=== PATIENT | female | born 1960 | race Caucasian/White ===

== ENCOUNTER → 2017-04-25 | Outpatient (CLI) | payer BC ==
[~2017-04-25] MED LIST: ADVIN25/60 INH; CLON1TAB3 PO; OXYSR10 PO; RXC5 PO; SERT50TA PO
[2017-04-25 11:35] LABS: BLOOD UREA NITROGEN 12 mg/dl (7-18); CARBON DIOXIDE 27 mmol/L (21-32); CHOLESTEROL 225 mg/dl (0-200); CREATININE 0.65 mg/dl (0.60-1.20); GLUCOSE 94 mg/dl (70-99); SODIUM 140 mmol/L (136-145)
[2017-04-25 11:39] LABS: LDL CHOLESTEROL CALCULATED 141 mg/dl
== END | disposition home or self-care (01) ==
LOC: C.LABBC 07:57
PROVIDERS: ATTEND Family Medicine
DX: Z12.11 Encounter for screening for malignant neoplasm of colon (principal); Z13.1 Encounter for screening for diabetes mellitus

== ENCOUNTER → 2017-06-18 | Outpatient (CLI) | payer BC ==
--- NOTE | 2017-06-24 07:29 | MAMMOGRAPHY REPORT ---
BILATERAL DIGITAL SCREENING MAMMOGRAM TOMOSYNTHESIS WITH CAD: 06/18/2017 CLINICAL HISTORY: Routine screening. Patient has no complaints. TECHNIQUE: Breast tomosynthesis in addition to standard 2D mammography was performed. Current study was also evaluated with a Computer Aided Detection (CAD) system. COMPARISON: Comparison is made to exams dated: 02/19/2012 mammogram and 02/08/2012 mammogram - [facility]. BREAST COMPOSITION: There are scattered areas of fibroglandular density in both breasts. FINDINGS: The parenchymal pattern is unchanged. No developing mass, architectural distortion or clus ter of suspicious microcalcifications is seen in either breast. IMPRESSION: ACR BI-RADS CATEGORY 2: BENIGN There is no mammographic evidence of malignancy. A 1 year screening mammogram is recommended. The pa tient will receive written notification of the results. Approximately 10% of breast cancers are not detected with mammography. A negative mammographic report should not delay biopsy if a clinically suggestive mass is present. Elyssa Escobedo M.D. ay/:06/18/2017 16:11:49 Sheet Metal Technician: Alayna Velez RT(R)(M), [facility] letter sent: Normal 1/2 BI-RADS Code: ACR BI-RADS Category 2: Benign
== END | disposition home or self-care (01) ==
LOC: C.MAMM 13:35
PROVIDERS: ATTEND Family Medicine
DX: Z12.31 Encounter for screening mammogram for malignant neoplasm of breast (principal)

== ENCOUNTER → 2017-07-12 | Outpatient (CLI) | payer BC | END | disposition home or self-care (01) | LOC: C.LAB1850 09:36 | PROVIDERS: ATTEND Family Medicine | DX: Z11.59 Encounter for screening for other viral diseases (principal) ==

== ENCOUNTER 2017-10-25 12:41 | Emergency (ER) | payer BC ==
[~2017-10-25] VITALS: Ht 157.5 cm; Wt 83.0 kg
[~2017-10-25 12:41] MED LIST changes: +CLON1TAB10 PO; -CLON1TAB3 PO
[2017-10-25 12:55] VITALS: TEMP 36.7; Ht 157.5 cm; Wt 83.0 kg
[2017-10-25] MEDS ORDERED: SODIUM CHLORIDE 0.9% 500ML 500 ML IV STA (13:11)
[2017-10-25] MEDS ORDERED: DiphenhydrAMINE HCL 50 MG/ML VIAL IV STA ×2 (13:11→15:08)
[2017-10-25] MEDS ORDERED: KETOROLAC TROMETHAMINE 30 MG/ML VIAL IV STA (13:11)
[2017-10-25] MEDS ORDERED: CEFTRIAXONE SOD INJ 1 GM in DEXTROSE 5% ADD-VANTAGE 50ML 50 ML IV STA (13:11)
--- NOTE | 2017-10-25 13:30 | EMERGENCY ROOM VISIT NOTE ---
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 The patient was doing barn work when she noticed a black spider that bit her on the left wrist. She has had progressive redness, swelling and pain since the bite. The redness is spreading up her arm. She has felt achy and feverish. She has a headache. She did not take her temperature at home. The patient saw her primary care physician earlier this morning, and was advised to come to the ED for further evaluation. The patient denies any known allergies. She has not tried anything [id number] for her symptoms. Review of Systems 10 system review performed and negative unless noted in HPI or below Past Medical/Surgical History Medical Problems: (1) Anxiety (2) Asthma (3) Depression (4) Humerus fracture Family History Cancer Diabetes mellitus Gallbladder disease Heart disease Hypertension Kidney disease Kidney stones Lung disease Social History Smoking Status: Former Smoker Alcohol Use: occasionally Marital Status: Housing Status: lives with family Occupation Status: employed Current/Historical Medications Scheduled Cephalexin Monohydrate (Keflex), 500 MG PO QID Clonazepam (Klonopin), 1 MG PO HS Fluticasone Prop/Salmeterol (Advair Diskus 250/50 60 Dose), 1 PUFF INH DAILY Ondasetron Odt (Zofran Odt), 4 MG SL Q6H Oxycodone HCl (Oxycontin), 10 MG PO Q12H Prednisone (Prednisone), 50 MG PO DAILY Sertraline HCl (Sertraline HCl), 100 MG PO DAILY Sulfa/Trimethoprim (Bactrim Ds 800MG/160MG), 1 TAB PO BID Scheduled PRN Oxycodone HCl (Oxycodone HCl), 5-10 MG PO Q4HWA PRN for Pain Physical Exam Vital Signs Date Time Temp Pulse Resp B/P (MAP) Pulse Ox O2 Delivery O2 Flow Rate FiO2 10/25/17 16:57 70 16 122/76 95 Room Air 10/25/17 15:45 70 16 122/61 96 Room Air 10/25/17 13:51 70 18 143/85 94 Room Air 10/25/17 12:55 36.7 90 20 124/74 95 Room Air Physical Exam VITALS: Vitals are noted on the nurse's note and reviewed by myself. Vital signs stable. GENERAL: 57-year-old female, in no acute distress, nondiaphoretic, well- developed well-nourished. SKIN: Diffuse erythema, warmth and edema noted to the left forearm extending proximally past the elbow. There is erythematous streaking up to the mid upper arm. There is a 0.5 cm vesicle filled with serous fluid noted on the right wrist. HEAD: Normocephalic atraumatic. EYES: Conjunctivae without injection, sclerae without icterus. Extraocular movements intact. MOUTH: Mucous membranes moist. NECK: Supple without nuchal rigidity. . No JVD. HEART: Systolic murmur heard best at the right upper sternal border. Regular rate. LUNGS: Clear to auscultation bilaterally without wheezes, rales or rhonchi. No accessory muscle use. ABDOMEN: Positive bowel sounds x 4.Soft, nontender, without organomegaly. No guarding or rebound tenderness. MUSCULOSKELETAL: No muscle atrophy, erythema, or edema noted. Erythema and edema noted to the left forearm as noted above. Strength 5/5 throughout. NEURO: Patient was alert and oriented to person place and time. Normal sensation to touch. No focal neurological deficits. Medical Decision & Procedures Laboratory Results 10/25/17 13:20 Red Blood Count 4.94, Mean Corpuscular Volume 86.2, Mean Corpuscular Hemoglobin 28.5, Mean Corpuscular Hemoglobin Concent 33.1, Mean Platelet Volume 10.6, Neutrophils (%) (Auto) 74.4, Lymphocytes (%) (Auto) 16.0, Monocytes (%) (Auto) 4.1, Eosinophils (%) (Auto) 5.1, Basophils (%) (Auto) 0.2, Neutrophils # (Auto) 7.28, Lymphocytes # (Auto) 1.56, Monocytes # (Auto) 0.40, Eosinophils # (Auto) 0.50, Basophils # (Auto) 0.02 10/25/17 13:20 Test 10/25/17 13:20 White Blood Count 9.78 K/uL (4.8-10.8) Red Blood Count 4.94 M/uL (4.2-5.4) Hemoglobin 14.1 g/dL (12.0-16.0) Hematocrit 42.6 % (37-47) Mean Corpuscular Volume 86.2 fL (80-100) Mean Corpuscular Hemoglobin 28.5 pg (25-34) Mean Corpuscular Hemoglobin Concent 33.1 g/dl (32-36) Platelet Count 250 K/uL (130-400) Mean Platelet Volume 10.6 fL (7.4-10.4) Neutrophils (%) (Auto) 74.4 % Lymphocytes (%) (Auto) 16.0 % Monocytes (%) (Auto) 4.1 % Eosinophils (%) (Auto) 5.1 % Basophils (%) (Auto) 0.2 % Neutrophils # (Auto) 7.28 K/uL (1.4-6.5) Lymphocytes # (Auto) 1.56 K/uL (1.2-3.4) Monocytes # (Auto) 0.40 K/uL (0.11-0.59) Eosinophils # (Auto) 0.50 K/uL (0-0.5) Basophils # (Auto) 0.02 K/uL (0-0.2) RDW Standard Deviation 42.1 fL (36.4-46.3) RDW Coefficient of Variation 13.4 % (11.5-14.5) Immature Granulocyte % (Auto) 0.2 % Immature Granulocyte # (Auto) 0.02 K/uL (0.00-0.02) Anion Gap 10.0 mmol/L (3-11) Est Creatinine Clear Calc Drug Dose 82.7 ml/min Estimated GFR () 102.6 Estimated GFR (Non- 88.5 BUN/Creatinine Ratio 21.8 (10-20) Calcium Level 8.6 mg/dl (8.5-10.1) Total Bilirubin 0.4 mg/dl (0.2-1) Aspartate Amino Transf (AST/SGOT) 28 U/L (15-37) Alanine Aminotransferase (ALT/SGPT) 28 U/L (12-78) Alkaline Phosphatase 154 U/L (45-117) Total Creatine Kinase 170 U/L (26-192) Total Protein 7.6 gm/dl (6.4-8.2) Albumin 3.7 gm/dl (3.4-5.0) Globulin 3.9 gm/dl (2.5-4.0) Albumin/Globulin Ratio 0.9 (0.9-2) Medications Administered Medications (Trade) Dose Ordered Sig/Miguel Route Start Time Stop Time Status Last Admin Dose Admin Ceftriaxone Sodium 1 gm/ Dextrose 50 ml @ 100 mls/hr ONE STAT IV 10/25/17 13:11 10/25/17 13:40 DC 10/25/17 13:45 100 MLS/HR Ketorolac Tromethamine (Toradol Inj) 30 mg NOW STAT IV 10/25/17 13:11 10/25/17 13:13 DC 10/25/17 13:46 30 MG Diphenhydramine HCl (Benadryl Inj) 25 mg NOW STAT IV 10/25/17 13:11 10/25/17 13:13 DC 10/25/17 13:45 25 MG Sodium Chloride 500 ml @ 999 mls/hr Q31M STAT IV 10/25/17 13:11 10/25/17 13:41 DC 10/25/17 13:11 999 MLS/HR Diphenhydramine HCl (Benadryl Inj) 25 mg NOW STAT IV 10/25/17 15:08 10/25/17 15:09 DC 10/25/17 15:50 25 MG Methylprednisolone Sodium Succinate (Solu-Medrol IV) 125 mg NOW STAT IV 10/25/17 15:13 10/25/17 15:15 DC 10/25/17 15:50 125 MG Ondansetron HCl (Zofran Inj) 4 mg STK-MED ONCE .ROUTE 10/25/17 15:53 10/25/17 15:54 DC 10/25/17 15:54 4 MG Trimethoprim/ Sulfamethoxazole (Septra Ds 800/ 160MG Tab) 1 tab NOW ONCE PO 10/25/17 16:45 10/25/17 16:46 DC 10/25/17 16:59 1 TAB ED Course Patient was seen and examined Vital signs including blood pressure were reviewed medications list was verified with patient Labs were obtained, and a saline lock was established The patient was hydrated with 500 cc of normal saline. She was given Toradol 30 mg IV. She was also given ceftriaxone 1 g IV. Upon reevaluation, the patient was complaining of nausea and itching. She was ordered Benadryl 25 mg IV and Solu-Medrol 125 mg IV. She was also given a dose of Zofran 4 mg IV the patient was again reevaluated and feeling better. We discussed her results. She voiced understanding. She was also seen and examined by my supervising physician who is in agreement with my plan. She was given 1 dose of Bactrim I reviewed discharge instructions the patient. They voiced understanding and had no further questions. Medical Decision Differential diagnosis: Insect bite, allergic reaction, cellulitis, lymphangitis , sepsis among others were entertained This patient is a 57-year-old female that presents to the emergency department complaining of an insect bite, pain, swelling and redness to the left forearm. She thinks that a spider bit her. On exam, she did have diffuse erythema, edema , warmth and erythematous streaking up the arm. She also started to form bullae that were serous filled during her emergency department stay. Her labs are fairly unremarkable. There is no leukocytosis. She is afebrile. There are no signs of anaphylaxis. I am concerned that this is an allergic reaction to the insect in addition to possibly an infection-particularly with the erythematous streaking. . For this reason, the patient will be treated with antibiotics, steroids and Benadryl. She was instructed to return to the ED in 48 hours for recheck. She will return sooner for any worsening symptoms. This chart was completed in part utilizing [employer] Speech Voice Recognition software. Attempts were made to minimize the grammatical errors, random word insertions, pronoun errors and incomplete sentences. Any formal questions or concerns about the content, text or information contained within the body of this dictation should be directly addressed to the provider for clarification. Medication Reconcilliation Current Medication List: was personally reviewed by me Blood Pressure Screening Patient's blood pressure: Normal blood pressure Impression Primary Impression: Insect bite Departure Information Dispostion Home / Self-Care Condition FAIR Prescriptions Ondasetron Odt (ZOFRAN ODT) 4 Mg Tab 4 MG SL Q6H for Nausea, #20 TAB Prov: Chantel Ramsay PA-C 10/25/17 Prednisone (Prednisone) 50 Mg Tab 50 MG PO DAILY for 4 Days, #4 TAB Prov: Chantel Ramsay PA-C 10/25/17 Cephalexin Monohydrate (Keflex) 500 Mg Cap 500 MG PO QID for 7 Days, #28 CAP Prov: Chantel Ramsay PA-C 10/25/17 Sulfa/Trimethoprim (Bactrim Ds 800MG/160MG) Tab 1 TAB PO BID for 7 Days, #14 TAB Prov: Chantel Ramsay PA-C 10/25/17 Referrals Vibha Duff MD (PCP) Patient Instructions My [facility] Additional Instructions You have been evaluated in the emergency department for an insect bite. I am concerned that there is an allergic reaction in addition to possibly an infection. If any large Bubbles continue to form, please gently pop them with a clean needle. Leave as much of the skin intact as possible. Please clean them daily with soap and water. Please also apply bacitracin to the area. Please take Zofran 4 mg every 6 hours as needed for nausea Please take Benadryl 50 mg (2 [id number] tabs) every 8 hours for the next 24 hours. Please take the ENTIRE course of Keflex and Bactrim Please take the entire course of steroids. First dose will be tomorrow morning. Please return to the ED in 48 hours for recheck Do not hesitate to return to the emergency department with any new, worsening or concerning symptoms; especially, increased redness, swelling, fever, difficulty breathing or swelling of the face, lips or tongue It was a pleasure participating in your care today
[2017-10-25 13:54] LABS: BASO % 0.2 %; BASO ABS # 0.02 K/uL (0-0.2); EOS % 5.1 %; HEMATOCRIT 42.6 % (37-47); HEMOGLOBIN 14.1 g/dL (12.0-16.0); IG# 0.02 K/uL (0.00-0.02); LYMPH ABS # 1.56 K/uL (1.2-3.4); MEAN CELL VOLUME 86.2 fL (80-100); MEAN CORPUSCULAR HEMOGLOBIN 28.5 pg (25-34); MEAN CORPUSCULAR HGB CONC 33.1 g/dl (32-36); MEAN PLATELET VOLUME 10.6 fL (7.4-10.4); MONO % 4.1 %; NEUT % 74.4 %; NEUT ABS # 7.28 K/uL (1.4-6.5); PLATELET COUNT 250 K/uL (130-400); RED CELL DISTRIBUTION WIDTH CV 13.4 % (11.5-14.5); RED CELL DISTRIBUTION WIDTH SD 42.1 fL (36.4-46.3); WHITE BLOOD COUNT 9.78 K/uL (4.8-10.8)
[2017-10-25] MEDS ORDERED: ZLF/100 PO (14:12)
[2017-10-25 14:20] LABS: ALBUMIN 3.7 gm/dl (3.4-5.0); CALCIUM 8.6 mg/dl (8.5-10.1); CREATININE 0.75 mg/dl (0.60-1.20); POTASSIUM 3.5 mmol/L (3.5-5.1); TOTAL PROTEIN 7.6 gm/dl (6.4-8.2)
[2017-10-25] MEDS ORDERED: METHYLPREDNISOLONE 125 MG VIAL IV STA (15:13)
[2017-10-25] MEDS ORDERED: ONDANSETRON INJ 2 MG/ML 2 ML VIAL ONE (15:53)
[2017-10-25] MEDS ORDERED: CEPH500C PO (16:40)
[2017-10-25] MEDS ORDERED: SULF800T23 PO (16:40)
[2017-10-25] MEDS ORDERED: PRED50TA PO (16:40)
[2017-10-25] MEDS ORDERED: ONDA4TAB10 SL (16:42)
[2017-10-25] MEDS ORDERED: SULFAMETHOXAZOLE/TRIMETHOPRIM DS 800/160MG TAB PO ONE (16:45)
[2017-10-25 16:57] VITALS: BP 122/76; PULSE 70; O2SAT 95
== END 2017-10-25 17:05 | disposition home or self-care (01) ==
LOC: C.EDB 12:42
DX: S50.862A Insect bite (nonvenomous) of left forearm, initial encounter (principal); W57.XXXA Bitten or stung by nonvenomous insect and other nonvenomous arthropods, initial encounter; R11.0 Nausea; L29.9 Pruritus, unspecified; F41.9 Anxiety disorder, unspecified; J45.909 Unspecified asthma, uncomplicated; F32.9 Major depressive disorder, single episode, unspecified; Z87.891 Personal history of nicotine dependence

== ENCOUNTER 2021-05-07 08:49 | Observation (INO) ==
--- NOTE | 2021-05-07 09:09 | Emergency Department Note ---
Impression & Plan Atypical chest pain, Weakness of right arm ED Provider Note NAME: ANNA CRUMP AGE: 60 SEX: F : 1960 ARRIVES VIA: Walk-In INFORMANT: Patient, ED PROVIDER(S): Gorge Hernandez MD Chief Complaint: Chest pain HPI: Patient presents for midsternal chest pain that did go to her right arm and had associated decreased sensation of the right upper extremity beginning around 3:00 this morning. Patient states that it did wake her from sleep. Patient denies any nausea vomiting or diaphoresis. The patient did complain of mild exertional symptoms. The patient denies any fevers or chills. The patient did have a recent COVID illness in the middle of last month and the patient has had some nonproductive dry cough since then. Patient denies any leg swelling history of DVT or PE. No known history of heart disease. Patient does have a remote history of asthma. Patient denies any wheezing. Patient did take some ibuprofen this morning which did not improve her symptoms today. The patient denies any family history of heart attack or stroke in parents or siblings before the age of 65. Patient denies any recent surgeries, hospitalizations or procedures. Patient denies any leg swelling or calf pain. Is currently 9 out of 10 in severity. ROS: See HPI for pertinent positives and negatives. A total of 10 systems were reviewed and otherwise negative. Past medical history: See below Surgical history: See below Social history: See below Physical Exam: GENERAL: NAD, wearing a mask, non-toxic. EYE EXAM: Normal conjunctiva. PERRL, no anisocoria and EOM's grossly intact w/o pain. OROPHARYNX: Moist mucus membranes. Grossly normal dentition. NECK: Supple, no nuchal rigidity, no adenopathy, non-tender. No signs of meningismus. Chest: No reproducible chest wall pain. LUNGS: Clear to auscultation. Normal chest wall mechanics. HEART: NSR, no MRG. ABDOMEN: Abdomen soft, non-tender, normo-active bowel sounds, no masses, no rebound or guarding. BACK: No CVA TTP. SKIN: No rashes and no bruising. UPPER EXTREMITIES: Upper extremities are grossly normal. LOWER EXTREMITIES: Grossly normal, no edema. Negative Homans' sign bilaterally. NEURO EXAM: A&O x3, cranial nerves II-XII grossly intact, normal speech, moves all 4 extremities on command w/o issue. Differential diagnoses: Cardiac ischemia, aortic dissection, pulmonary embolism, pneumothorax, pneumonia, pericarditis, myocarditis, esophageal rupture, GERD, cholecystitis, pancreatitis, musculoskeletal, as well as other pathologies. Course: Patient was seen and evaluated the bedside. Full history physical exam was performed. EKG interpreted by me Normal sinus rhythm, rate of 71, normal intervals, normal axis, no obvious ST depressions but possible T wave version in V2. No prior EKGs for comparison. Repeat EKG completed at 953 interpreted by me Normal sinus rhythm, rate of 72, normal intervals, normal axis, no obvious ST elevations or depressions, T WI questionably less prominent in V2. Repeat EKG completed at 1011 interpreted by me Normal sinus rhythm, rate of 67, normal intervals, normal axis, no significant change. Imaging Studies: See Below Cardiac monitoring: An order was placed for continuous cardiac monitoring. The monitor shows a rate of 72 with sinus rhythm. MDM: Patient was seen due to concern for acute chest pain. Blood work is obtained along with an EKG troponin chest x-ray. Repeat EKG was ordered to monitor for any dynamic changes. The patient did have improvement in symptoms with nitro x3 from a 9 out of 10 to a 5 out of 10. The patient was still complaining of pain which did radiate to her back so CT angiography was ordered. Patient does not have any signs of DVT on exam. Blood work shows a normal white count H&H and platelet count. The patient's kidney function is unremarkable. Troponin is negative. The patient's Covid negative. Patient CT angiography does not show evidence of any PE or dissection. On reassessment the patient was complaining some arm heaviness. Patient had isolated right arm weakness 4 out of 5 in strength with the patient was outside the window for any TN K because after further discussion the patient related that she thinks that she had the symptoms at 7 this morning although when she presented she only complained of some numbness but the patient did not have any true numbness on exam. Patient does not have any facial droop, slurred speech or other weakness. Patient has no sensory deficits. The patient is good [id number]. The patient is able to keep her arms against gravity for prolonged period of time but has some weakness when resistance is applied. Code stroke was initiated promptly at the time that she stated that she had the arm heaviness was around 1130. I did speak with telestroke neurologist Dr. Eder Medrano who stated the patient was outside the window for any TNKase given the last known well but to call back if the patient had signs of a large vessel occlusion. Patient CT angiography's and CT of the head are negative. This was conveyed to the inpatient hospitalist team. Patient was admitted to the medicine service. The patient already did receive full dose aspirin Past Med/Surg History Medical History Anxiety Asthma inhaler daily/prn, nebulizer prn Depression Surgical History H/O section H/O tubal ligation History of colonoscopy History of fusion of cervical spine C5-C6; normal ROM History of open reduction and internal fixation (ORIF) procedure right arm--hardware in place History of wisdom tooth extraction Hx of tonsillectomy Family History Father Brain tumor Prostate cancer Atrial fibrillation Dementia Obsessive compulsive disorder Mother Urinary bladder cancer Hyperlipidemia Hypertension Dementia Venous insufficiency Grandmother Coronary heart disease Breast cancer Daughter Chronic mastoiditis Hearing loss Encephalocele Asthma Brother Brain tumor, Onset Age: 59 glioblastoma Grandfather (Maternal) Family history of diabetes mellitus Daughter Stroke Daughter Panic disorder without agoraphobia Other No family history of adverse response to anesthesia Denies family history of Colon cancer Ovarian cancer Myocardial infarction Social History Smoking Status: Never smoker Second Hand Exposure: Yes (mom smoked); Hx Alcohol Use: No Hx Substance Use: No Preferred Language: Azeri Communication Ability: Effective Visual Impairment: No Limitations Hearing Ability: Hard of Hearing Library Technology Instructor Required: No Beliefs That Will Affect Care: None marital status: Current Living Situation: Spouse current occupational status: employed current occupation: direct support Feels Safe at Home: Yes Childhood Exposure to Second-Hand Smoke: Yes Dental Care, Regularly: Yes Physical Activity Frequency: 1-2 Times per Week Seatbelt Use: always Sunscreen Use: No Assistive Devices: Glasses Allergies Allergies Allergy/AdvReac Type Severity Reaction Status Date / Time No Known Drug Allergies Allergy Unknown Verified 05/07/21 13:24 Home Meds Home Medications Medication Instructions Recorded Confirmed sertraline 100 mg tablet 250 mg PO QAM tab 03/20/19 05/07/21 albuterol sulfate 2.5 mg INH Q4 PRN 03/25/19 05/07/21 clonazepam 0.5 mg tablet 0.5 mg PO HS 03/25/19 05/07/21 Previous Rx's Medication Instructions Recorded fluticasone furoate 200 1 inh INH QAM #60 ea 02/24/20 mcg-vilanterol 25 mcg/dose inhalation powder (Breo Ellipta) albuterol sulfate 90 mcg/actuation 2 puff INH Q4H PRN #18 gm 05/04/20 aerosol inhaler (Ventolin HFA) naproxen 500 mg tablet 500 mg PO BID PRN #14 tab 07/25/20 cholecalciferol (vitamin D3) 1,250 50,000 unit PO .COMPLEX 90 Days 05/02/21 mcg (50,000 unit) capsule #24 cap Results & Data (ED) Vital Signs Vital Signs - 24 hr 05/07/21 09:00 05/07/21 09:14 05/07/21 09:30 Temperature 36.8 C Temperature Source Temporal Artery Scan Pulse Rate 74 70 85 Pulse Rate [Left Finger] Pulse Rate from SpO2 Sensor 70 83 Respiratory Rate 17 12 17 Respiratory Effort / Characteristics Non-Labored Spontaneous Respiratory Depth Normal Respiratory Pattern Regular Blood Pressure 160/87 H 152/91 H 138/89 Blood Pressure [Right Arm] Blood Pressure Mean 111 111 105 Blood Pressure Mean [Right Arm] Blood Pressure Position Sitting Pulse Oximetry 96 99 98 Oxygen Delivery Method Room Air Sepsis Recent Fever Within 48 Hours No Sepsis New/Unexplained Change in Mental Status N/A Sepsis Action Taken by Nursing No Action Required 05/07/21 09:32 05/07/21 09:41 05/07/21 09:45 Temperature Temperature Source Pulse Rate 79 73 Pulse Rate [Left Finger] Pulse Rate from SpO2 Sensor 80 71 Respiratory Rate 16 15 Respiratory Effort / Characteristics Respiratory Depth Respiratory Pattern Blood Pressure 130/83 126/67 129/78 Blood Pressure [Right Arm] Blood Pressure Mean 98 86 95 Blood Pressure Mean [Right Arm] Blood Pressure Position Pulse Oximetry 97 99 Oxygen Delivery Method Sepsis Recent Fever Within 48 Hours Sepsis New/Unexplained Change in Mental Status Sepsis Action Taken by Nursing 05/07/21 09:50 05/07/21 10:00 05/07/21 10:15 Temperature Temperature Source Pulse Rate 71 71 71 Pulse Rate [Left Finger] Pulse Rate from SpO2 Sensor 71 73 72 Respiratory Rate 20 13 13 Respiratory Effort / Characteristics Respiratory Depth Respiratory Pattern Blood Pressure 128/79 128/79 138/74 Blood Pressure [Right Arm] Blood Pressure Mean 95 95 95 Blood Pressure Mean [Right Arm] Blood Pressure Position Pulse Oximetry 97 99 99 Oxygen Delivery Method Sepsis Recent Fever Within 48 Hours Sepsis New/Unexplained Change in Mental Status Sepsis Action Taken by Nursing 05/07/21 10:30 05/07/21 11:15 05/07/21 11:50 Temperature Temperature Source Pulse Rate 82 60 Pulse Rate [Left Finger] 58 L Pulse Rate from SpO2 Sensor Respiratory Rate 15 16 22 Respiratory Effort / Characteristics Non-Labored Spontaneous Respiratory Depth Respiratory Pattern Blood Pressure 122/83 Blood Pressure [Right Arm] 136/76 Blood Pressure Mean 96 Blood Pressure Mean [Right Arm] 96 Blood Pressure Position Pulse Oximetry 98 97 Oxygen Delivery Method Room Air Room Air Sepsis Recent Fever Within 48 Hours Sepsis New/Unexplained Change in Mental Status Sepsis Action Taken by Nursing 05/07/21 12:07 05/07/21 12:08 05/07/21 12:10 Temperature Temperature Source Pulse Rate 69 72 67 Pulse Rate [Left Finger] Pulse Rate from SpO2 Sensor 71 66 Respiratory Rate 16 17 16 Respiratory Effort / Characteristics Respiratory Depth Respiratory Pattern Blood Pressure 150/80 H Blood Pressure [Right Arm] Blood Pressure Mean 103 Blood Pressure Mean [Right Arm] Blood Pressure Position Pulse Oximetry 99 99 97 Oxygen Delivery Method Room Air Room Air Room Air Sepsis Recent Fever Within 48 Hours Sepsis New/Unexplained Change in Mental Status Sepsis Action Taken by Nursing 05/07/21 12:12 05/07/21 12:15 05/07/21 12:20 Temperature Temperature Source Pulse Rate 71 68 64 Pulse Rate [Left Finger] Pulse Rate from SpO2 Sensor 66 65 Respiratory Rate 18 14 13 Respiratory Effort / Characteristics Respiratory Depth Respiratory Pattern Blood Pressure 150/80 H 145/80 H Blood Pressure [Right Arm] Blood Pressure Mean 103 101 Blood Pressure Mean [Right Arm] Blood Pressure Position Pulse Oximetry 97 98 98 Oxygen Delivery Method Room Air Sepsis Recent Fever Within 48 Hours Sepsis New/Unexplained Change in Mental Status Sepsis Action Taken by Nursing 05/07/21 12:30 05/07/21 12:40 05/07/21 12:45 Temperature Temperature Source Pulse Rate 68 60 59 L Pulse Rate [Left Finger] Pulse Rate from SpO2 Sensor 68 59 L 60 Respiratory Rate 15 16 15 Respiratory Effort / Characteristics Respiratory Depth Respiratory Pattern Blood Pressure 137/71 144/73 H Blood Pressure [Right Arm] Blood Pressure Mean 93 96 Blood Pressure Mean [Right Arm] Blood Pressure Position Pulse Oximetry 98 98 99 Oxygen Delivery Method Sepsis Recent Fever Within 48 Hours Sepsis New/Unexplained Change in Mental Status Sepsis Action Taken by Nursing 05/07/21 12:50 05/07/21 13:00 05/07/21 13:10 Temperature Temperature Source Pulse Rate 63 60 66 Pulse Rate [Left Finger] Pulse Rate from SpO2 Sensor 62 58 L 64 Respiratory Rate 17 16 17 Respiratory Effort / Characteristics Respiratory Depth Respiratory Pattern Blood Pressure 144/77 H Blood Pressure [Right Arm] Blood Pressure Mean 99 Blood Pressure Mean [Right Arm] Blood Pressure Position Pulse Oximetry 98 98 98 Oxygen Delivery Method Room Air Room Air Sepsis Recent Fever Within 48 Hours Sepsis New/Unexplained Change in Mental Status Sepsis Action Taken by Nursing 05/07/21 13:57 Temperature Temperature Source Pulse Rate 62 Pulse Rate [Left Finger] Pulse Rate from SpO2 Sensor Respiratory Rate 18 Respiratory Effort / Characteristics Respiratory Depth Respiratory Pattern Blood Pressure 158/88 H Blood Pressure [Right Arm] Blood Pressure Mean 111 Blood Pressure Mean [Right Arm] Blood Pressure Position Pulse Oximetry 98 Oxygen Delivery Method Room Air Sepsis Recent Fever Within 48 Hours Sepsis New/Unexplained Change in Mental Status Sepsis Action Taken by Assisted Medications Current Medication List: was personally reviewed by me Laboratory Data Attestation: I reviewed the patient's lab results. Result diagrams: 05/07/21 09:12 05/07/21 09:12 Lab Results 05/07/21 05/07/21 05/07/21 Range/Units 09:12 09:12 09:40 WBC 6.03 (4.8-10.8) K/uL RBC 5.41 H (4.2-5.4) M/uL Hgb 15.5 (12.0-16.0) g/dL Hct 46.4 (37-47) % MCV 85.8 (80-100) fL MCH 28.7 (25-34) pg MCHC 33.4 (32-36) g/dL RDW Std Deviation 40.2 (36.4-46.3) fL RDW Coeff of Anish 12.8 (11.5-14.5) % Plt Count 250 (130-400) K/uL MPV 10.2 (7.4-10.4) fL Immature Gran % (Auto) 0.0 % Neut % (Auto) 67.3 % Lymph % (Auto) 25.0 % Davis % (Auto) 5.1 % Eos % (Auto) 2.3 % Baso % (Auto) 0.3 % Neut # (Auto) 4.05 (1.4-6.5) K/uL Lymph # (Auto) 1.51 (1.2-3.4) K/uL Davis # (Auto) 0.31 (0.11-0.59) K/uL Eos # (Auto) 0.14 (0-0.5) K/uL Baso # (Auto) 0.02 (0-0.2) K/uL Immature Gran # (Auto) 0.00 (0.00-0.02) K/uL Sodium 141 (136-145) mmol/L Potassium 4.2 (3.5-5.1) mmol/L Chloride 108 H (98-107) mmol/L Carbon Dioxide 26 (21-32) mmol/L Anion Gap 7 (3-11) BUN 22 (6-23) mg/dl Creatinine 0.71 (0.6-1.2) mg/dl Est Cr Clr Drug Dosing 66.6 ml/min Est GFR ( Amer) 107.3 ml/min Est GFR (Non-Af Amer) 92.6 ml/min BUN/Creatinine Ratio 31.0 H (10-20) Glucose 88 (70-99(Fasting)) mg/dl Calcium 9.5 (8.5-10.1) mg/dl Total Bilirubin 0.6 (0.2-1.0) mg/dl AST 23 (13-39) U/L ALT 13 (7-52) U/L Alkaline Phosphatase 103 (34-104) U/L Troponin I < 0.03 (0-0.04) ng/ml Total Protein 7.0 (6.0-8.3) gm/dl Albumin 4.3 (3.4-5.0) gm/dl Globulin 2.7 (2.5-4.0) gm/dl Albumin/Globulin Ratio 1.6 (0.9-2) Lipase 12 (11-82) U/L SARS-CoV-2, RNA, NAAT NEGATIVE (NEGATIVE) Administered Medications Nitroglycerin (Nitroglycerin Sl 0.4 Mg/Tab Tab) 0.4 mg SL UD PRN PRN Reason: Chest Pain Stop: 06/06/21 09:18 Last Admin: 05/07/21 09:44 Dose: 0.4 mg Documented by: [id number] Admin: 05/07/21 09:37 Dose: 0.4 mg Documented by: [id number] Discontinued Medications Aspirin (Aspirin Chew 324 Mg) 324 mg PO NOW STA Stop: 05/07/21 09:20 Last Admin: 05/07/21 09:28 Dose: Not Given Documented by: [id number] Aspirin (Aspirin Chew 324 Mg) Confirm Administered Dose 324 mg .ROUTE .STK-MED ONE Stop: 05/07/21 09:21 Last Admin: 05/07/21 09:24 Dose: 324 mg Documented by: [id number] Sodium Chloride (Nss) 500 mls @ 999 mls/hr IV .Q31M STA Stop: 05/07/21 09:49 Last Infusion: 05/07/21 10:14 Dose: 0 mls/hr Documented by: [id number] Admin: 05/07/21 09:27 Dose: 999 mls/hr Documented by: [id number] Ioversol (Optiray 320 125ml) 120 ml IV ONCE ONE Stop: 05/07/21 10:42 Last Admin: 05/07/21 10:42 Dose: 120 ml Documented by: [id number] Ioversol (Optiray 320 125ml) 120 ml IV ONCE ONE Stop: 05/07/21 12:03 Last Admin: 05/07/21 12:03 Dose: 120 ml Documented by: [id number] Morphine Sulfate (Morphine Sulfate 4 Mg/Ml 1 Ml Carp\Vial) 4 mg IV NOW STA Stop: 05/07/21 10:08 Last Admin: 05/07/21 10:11 Dose: 4 mg Documented by: [id number] Nitroglycerin (Nitroglycerin Sl 0.4 Mg/Tab Tab) Confirm Administered Dose 0.4 mg .ROUTE .STK-MED ONE Stop: 05/07/21 09:22 Last Admin: 05/07/21 09:25 Dose: 0.4 mg Documented by: [id number] Ondansetron HCl (Ondansetron Inj 2 Mg/Ml 2 Ml Vial) 4 mg IV NOW STA Stop: 05/07/21 09:20 Last Admin: 05/07/21 09:37 Dose: 4 mg Documented by: [id number] Imaging Data Radiologist's Impression: Chest X-Ray 05/07/21 09:19 XR chest 1V portable CLINICAL HISTORY: Chest Pain. COMPARISON STUDY: 05/01/2021 TECHNIQUE: 1 view of the chest FINDINGS: Single frontal view of the chest demonstrates the cardiomediastinal silhouette to be within normal limits. The lungs are clear of alveolar opacities. There is no evidence for pleural effusion. There is no evidence for vascular congestion. There is no acute osseous pathology. IMPRESSION: 1. No acute cardiopulmonary disease. ACT 112: Negative or not required by law. Electronically signed by: Hemanth Jack M.D. 05/07/2021 9:39 AM Chest CTA 05/07/21 10:26 CT angio chest PE protocol CLINICAL HISTORY: pain mid chest radiating to back . Evaluate for pulmonary embolus COMPARISON STUDY: Portable chest from 05/07/2021 CT DOSE: 278.35 mGy.cm TECHNIQUE: CT Angio of the chest was performed.followed by image post processing with coronal, and sagittal MIP reformats. Contrast Volume: ml FINDINGS: Vasculature: There is homogeneous perfusion of the pulmonary vasculature bilaterally. No intraluminal filling defects or evidence for pulmonary embolus is seen. Airway: The airway is clear. No endobronchial lesion is identified. Lungs: The lungs are clear of acute alveolar opacities, air bronchograms or pulmonary nodules. Pleura: There is no evidence for pleural effusion. There is no evidence for pneumothorax. Mediastinum: There is no evidence for pathologic adenopathy. The heart size is within normal limits. The thoracic aorta is within normal limits. There is no evidence for pericardial effusion. Upper abdomen:The adrenal glands are normal bilaterally. Osseous structures: There is no acute osseous pathology. Impression: 1. No CTA evidence for pulmonary embolus. 2. No acute chest disease. ACT 112: Negative or not required by law. Electronically signed by: Hemanth Jack M.D. 05/07/2021 10:[address] 05/07/21 11:50 CT head/brain wo con CLINICAL HISTORY: R arm weakness COMPARISON STUDY: No previous studies for comparison. CT DOSE: TECHNIQUE: Standard CT of the Brain was performed without IV contrast. A dose lowering technique was utilized adhering to the principles of ALARA. FINDINGS: Extraaxial space: There is no evidence for subdural hematoma. There are no extra-axial fluid collections. Ventricles and cisterns: The ventricles are normal in size and configuration. There is no evidence for midline shift or mass effect. Parenchyma: There is no subarachnoid or intraparenchymal hemorrhage. There is no evidence for an acute infarct or cerebral edema. There is homogeneous attenuation of the brain parenchyma. There are no gross mass lesions. Osseous structures: There is no evidence for an acute fracture. The visualized paranasal sinuses are clear. The mastoid air cells are clear bilaterally. Soft tissues: There is no evidence for focal soft tissue swelling. IMPRESSION: 1. No acute intracerebral pathology. ACT 112: Negative or not required by law. Electronically signed by: Hemanth Jack M.D. 05/07/2021 12:10 PM Head CTA 05/07/21 11:50 CT angio head w con CLINICAL HISTORY: R arm weakness COMPARISON STUDY: CT brain without contrast from 05/07/2021 CT DOSE: TECHNIQUE: CT Angio of the brain was performed.followed by image post processing with coronal, and sagittal MIP reformats. Contrast Volume: Optiray 320, 120 ml FINDINGS: Vascular findings: There is normal enhancement within the internal carotid arteries bilaterally. There is mild atherosclerotic calcification of the int racranial portion of the internal carotid artery on the right. There is normal enhancement noted within the anterior, middle and posterior cerebral arteries. Nonvascular findings: There is homogeneous attenuation of the brain parenchyma bilaterally. There is no evidence for an acute infarct or cerebral edema. IMPRESSION: Essentially negative CT angiogram of the brain with contrast. ACT 112: Negative or not required by law. Electronically signed by: Hemanth Jack M.D. 05/07/2021 12:23 PM Neck CTA 05/07/21 11:50 CT angio neck with con CLINICAL HISTORY: R arm weakness COMPARISON STUDY: No previous studies for comparison. CT DOSE: 1082.10 mGy.cm TECHNIQUE: CT Angio of the neck was performed.followed by image post processing with coronal, and sagittal MIP reformats.. Stenosis assessment by NASCET criteria. Contrast Volume: Optiray 300, 120 ml FINDINGS: Vascular findings: Right common carotid artery: Patent without significant stenosis. Right internal carotid artery: Patent without significant stenosis. Right vertebral artery: Patent without significant stenosis. Left common carotid artery: Patent without significant stenosis. Left internal carotid artery: Patent without significant stenosis. Left vertebral artery: Patent without significant stenosis. Nonvascular findings: The parotid and submandibular salivary glands appear normal. There is no enl arged cervical adenopathy noted. The airway appears patent. The thyroid gland appears within normal limits. The lung apices appear within normal limits. Impression: Negative CT angiogram of the neck with contrast. ACT 112: Negative or not required by law. Electronically signed by: Hemanth Jack M.D. 05/07/2021 12:28 PM Discharge Plan Visit Data Chief Complaint: Chest Pain Stated Complaint: CHEST PAIN,BACK PAIN ED Provider: Gorge Hernandez Discharge Problem: Atypical chest pain, Weakness of right arm Patient Disposition: Admitted As Inpatient Forms Stand Alone Forms: [facility] Prescriptions Prescriptions: No Action Breo Ellipta 200-25 mcg/dose blister with device 1 inh INH QAM Qty: 60 RF: 5 albuterol sulfate [Ventolin HFA] 90 mcg/actuation HFA aerosol inhaler 2 puff INH Q4H PRN (Reason: shortness of breath or wheezing) Qty: 18 RF: 3 cholecalciferol (vitamin D3) 1,250 mcg (50,000 unit) capsule 50,000 unit PO .COMPLEX 90 Days Qty: 24 RF: 0 naproxen 500 mg tablet 500 mg PO BID PRN (Reason: pain) Qty: 14 RF: 1 sertraline 100 mg tablet 250 mg PO QAM RF: 0 clonazepam 0.5 mg Tablet 0.5 mg PO HS RF: 0 albuterol sulfate 2.5 mg /3 mL (0.083 %) solution for nebulization 2.5 mg INH Q4 PRN (Reason: shortness of breath or wheezing) RF: 0 Referrals Referrals: Vibha Duff MD [Primary Care Provider] -
[2021-05-07] MEDS ORDERED: ONDANSETRON INJ 2 MG/ML 2 ML VIAL IV STA (09:19)
[2021-05-07] MEDS ORDERED: ASPIRIN CHEW 324 MG PO STA (09:19)
[2021-05-07] MEDS ORDERED: SODIUM CHLORIDE 0.9% 500 ML IV STA (09:19)
[2021-05-07] MEDS ORDERED: ASPIRIN CHEW 324 MG ONE (09:20)
[2021-05-07] MEDS ORDERED: NITROGLYCERIN SL 0.4 MG/TAB TAB ONE (09:21)
[2021-05-07 09:28] LABS: Basophils # (auto) 0.02 K/uL (0-0.2); Basophils % (auto) 0.3 %; Eosinophils # (auto) 0.14 K/uL (0-0.5); Eosinophils % (auto) 2.3 %; Hematocrit (blood only) 46.4 % (37-47); Hemoglobin 15.5 g/dL (12.0-16.0); Lymphocytes # (auto) 1.51 K/uL (1.2-3.4); Mean Corpuscular Hemoglobin 28.7 pg (25-34); Mean Corpuscular Hgb Conc 33.4 g/dL (32-36); Mean Corpuscular Volume 85.8 fL (80-100); Mean Platelet Volume 10.2 fL (7.4-10.4); Monocytes # (auto) 0.31 K/uL (0.11-0.59); Monocytes % (auto) 5.1 %; Neutrophils # (auto) 4.05 K/uL (1.4-6.5); Neutrophils % (auto) 67.3 %; Platelet Count 250 K/uL (130-400); RDW Coefficient of Variation 12.8 % (11.5-14.5); RDW Standard Deviation 40.2 fL (36.4-46.3); Red Blood Count 5.41 M/uL (4.2-5.4); White Blood Count 6.03 K/uL (4.8-10.8)
[2021-05-07] MEDS: NITROGLYCERIN SL 0.4 MG/TAB TAB SL PRN ×2 (09:37→09:44)
[2021-05-07 09:40] LABS: Troponin I < 0.03 ng/ml (0-0.04)
--- NOTE | 2021-05-07 09:41 | XRay Report ---
XR chest 1V portable CLINICAL HISTORY: Chest Pain. COMPARISON STUDY: 05/01/2021 TECHNIQUE: 1 view of the chest FINDINGS: Single frontal view of the chest demonstrates the cardiomediastinal silhouette to be within normal li mits. The lungs are clear of alveolar opacities. There is no evidence for pleural effusion. There is no evidence for vascular congestion. There is no acute osseous pathology. IMPRESSION: 1. No acute cardiopulmonary disease. ACT 112: Negative or not required by law. Electronically signed by: Hemanth Jack M.D. 05/07/2021 9:39 AM
[2021-05-07 09:42] LABS: Alanine Aminotransferase 13 U/L (7-52); Albumin Globulin Ratio 1.6 (0.9-2); Albumin Level 4.3 gm/dl (3.4-5.0); Alkaline Phosphatase 103 U/L (34-104); Anion Gap 7 (3-11); Aspartate Aminotransferase 23 U/L (13-39); Bilirubin,Total 0.6 mg/dl (0.2-1.0); Blood Urea Nitrogen 22 mg/dl (6-23); Calcium 9.5 mg/dl (8.5-10.1); Carbon Dioxide 26 mmol/L (21-32); Chloride 108 mmol/L (98-107); Creatinine Clr Calc Pharmacy 66.6 ml/min; Est GFR (African American) 107.3 ml/min; Est GFR (Non-African American) 92.6 ml/min; Globulin 2.7 gm/dl (2.5-4.0); Glucose 88 mg/dl (70-99(Fasting)); Lipase 12 U/L (11-82); Potassium 4.2 mmol/L (3.5-5.1); Sodium 141 mmol/L (136-145)
[2021-05-07] MEDS ORDERED: MoRPHine SULFATE 4 MG/ML 1 ML CARP\\VIAL IV STA (10:07)
[2021-05-07] MEDS ORDERED: OPTIRAY 320 125ml IV ONE ×2 (10:41→12:02)
--- NOTE | 2021-05-07 10:56 | CT Scan Report ---
CT angio chest PE protocol CLINICAL HISTORY: pain mid chest radiating to back . Evaluate for pulmonary embolus COMPARISON STUDY: Portable chest from 05/07/2021 CT DOSE: 278.35 mGy.cm TECHNIQUE: CT Angio of the chest was performed.followed by image post processing with coronal, and s agittal MIP reformats. Contrast Volume: ml FINDINGS: Vasculature: There is homogeneous perfusion of the pulmonary vasculature bilaterally. No intraluminal filling defects or evidence for pulmonary embolus is seen. Airway: The airway is clear. No endobronchial lesion is identified. Lungs: The lungs are clear of acute alveolar opacities, air bronchograms or pulmonary nodules. Pleura: There is no evidence for pleural effusion. There is no evidence for pneumothorax. Mediastinum: There is no evidence for pathologic adenopathy. The heart size is within normal limits. The thoracic aorta is within normal limits. There is no evidence for pericardial effusion. Upper abdomen:The adrenal glands are normal bilaterally. Osseous structures: There is no acute osseous pathology. Impression: 1. No CTA evidence for pulmonary embolus. 2. No acute chest disease. ACT 112: Negative or not required by law. Electronically signed by: Hemanth Jack M.D. 05/07/2021 10:54 AM
--- NOTE | 2021-05-07 12:12 | CT Scan Report ---
CT head/brain wo con CLINICAL HISTORY: R arm weakness COMPARISON STUDY: No previous studies for comparison. CT DOSE: TECHNIQUE: Standard CT of the Brain was performed without IV contrast. A dose lowering technique was utilized adhering to the principles of ALARA. FINDINGS: Extraaxial space: There is no evidence for subdural hematoma. There are no extra-axial fluid collecti ons. Ventricles and cisterns: The ventricles are normal in size and configuration. There is no evidence fo r midline shift or mass effect. Parenchyma: There is no subarachnoid or intraparenchymal hemorrhage. There is no evidence for an acut e infarct or cerebral edema. There is homogeneous attenuation of the brain parenchyma. There are no g ross mass lesions. Osseous structures: There is no evidence for an acute fracture. The visualized paranasal sinuses are clear. The mastoid air cells are clear bilaterally. Soft tissues: There is no evidence for focal soft tissue swelling. IMPRESSION: 1. No acute intracerebral pathology. ACT 112: Negative or not required by law. Electronically signed by: Hemanth Jack M.D. 05/07/2021 12:10 PM
--- NOTE | 2021-05-07 12:24 | CT Scan Report ---
CT angio head w con CLINICAL HISTORY: R arm weakness COMPARISON STUDY: CT brain without contrast from 05/07/2021 CT DOSE: TECHNIQUE: CT Angio of the brain was performed.followed by image post processing with coronal, and s agittal MIP reformats. Contrast Volume: Optiray 320, 120 ml FINDINGS: Vascular findings: There is normal enhancement within the internal carotid arteries bilaterally. Ther e is mild atherosclerotic calcification of the intracranial portion of the internal carotid artery on the right. There is normal enhancement noted within the anterior, middle and posterior cerebral penelope anuradha. Nonvascular findings: There is homogeneous attenuation of the brain parenchyma bilaterally. There is no evidence for an acute infarct or cerebral edema. IMPRESSION: Essentially negative CT angiogram of the brain with contrast. ACT 112: Negative or not required by law. Electronically signed by: Hemanth Jack M.D. 05/07/2021 12:23 PM
--- NOTE | 2021-05-07 12:29 | CT Scan Report ---
CT angio neck with con CLINICAL HISTORY: R arm weakness COMPARISON STUDY: No previous studies for comparison. CT DOSE: 1082.10 mGy.cm TECHNIQUE: CT Angio of the neck was performed.followed by image post processing with coronal, and sa gittal MIP reformats.. Stenosis assessment by NASCET criteria. Contrast Volume: Optiray 300, 120 ml FINDINGS: Vascular findings: Right common carotid artery: Patent without significant stenosis. Right internal carotid artery: Patent without significant stenosis. Right vertebral artery: Patent without significant stenosis. Left common carotid artery: Patent without significant stenosis. Left internal carotid artery: Patent without significant stenosis. Left vertebral artery: Patent without significant stenosis. Nonvascular findings: The parotid and submandibular salivary glands appear normal. There is no enlarged cervical adenopathy noted. The airway appears patent. The thyroid gland appears within normal limits. The lung apices ap pear within normal limits. Impression: Negative CT angiogram of the neck with contrast. ACT 112: Negative or not required by law. Electronically signed by: Hemanth Jack M.D. 05/07/2021 12:28 PM
[2021-05-07] MEDS ORDERED: FAMOTIDINE 20MG IV PUSH 20 MG/5 ML SYR IV STA (13:56)
[2021-05-07] MEDS ORDERED: fentaNYL citrate 100 MCG/2 ML VIAL IV STA (13:56)
[2021-05-07] MEDS ORDERED: GI COCKTAIL ED USE PO ONE (13:56)
--- NOTE | 2021-05-07 13:57 | History & Physical Report ---
Date of Service May 07, 2021 Assessment & Plan (1) Chest pain: Plan: Patient has chest pain. It was a little worse than when I examined her back which leads me to believe this is may be more musculoskeletal however possibly even a shingles prodrome. To this end however we will trend her troponins EKGs and likely perform an echocardiographic stress test in 1 day (2) Depression: Plan: Patient does suffer from depression, maintained on sertraline and clonazepam (3) Asthma: Plan: Patient has asthma appears to be quiescent at this time she remains on fluticasone Vilanterol inhaler Plan: DVT prevention is early ambulation less this patient has a prolonged hospital stay. History of Present Illness Primary Care Provider: Vibha Duff MD 60 female with no known cardiac history who presents with chest discomfort and eventually some right hand tingling. Patient is chest discomfort is central it radiates to her back and she is got a difficulty in getting comfortable. It is not positional such as you would consider with endocarditis it was not helped with a GI cocktail it is not pleuritic. CT angiogram for ruling out PE comments that they thoracic aorta is normal and there is no pericardial effusion. Patient initially was called to admit for chest pain rule out however I stroke alert was also called because of the right hand tingling although she was outside of the window for treatment. Her right hand tingling did resolve the patient recently had a Covid infection approximately April 20 2021 via home testing and has had some continued dry cough since then. Patient has a remote history of asthma but denies any recent wheezing. Current Covid testing is negative In the emergency department her EKG x3 and troponin are unremarkable, a Covid RNA test is negative CTA of the chest is negative for pulmonary embolism CT scan of the head is unremarkable CT angiography of the head and neck are negative Allergies Allergy/AdvReac Type Severity Reaction Status Date / Time No Known Drug Allergies Allergy Unknown Verified 05/07/21 13:24 Home Medications Medication Instructions Recorded Confirmed Type sertraline 100 mg tablet 250 mg PO QAM tab 03/20/19 05/07/21 History albuterol sulfate 2.5 mg INH Q4 PRN 03/25/19 05/07/21 History clonazepam 0.5 mg tablet 0.5 mg PO HS 03/25/19 05/07/21 History fluticasone furoate 200 1 inh INH QAM #60 ea 02/24/20 05/07/21 Rx mcg-vilanterol 25 mcg/dose inhalation powder (Breo Ellipta) albuterol sulfate 90 mcg/actuation 2 puff INH Q4H PRN #18 gm 05/04/20 05/07/21 Rx aerosol inhaler (Ventolin HFA) naproxen 500 mg tablet 500 mg PO BID PRN #14 tab 07/25/20 05/07/21 Rx cholecalciferol (vitamin D3) 1,250 50,000 unit PO .COMPLEX 90 Days 05/02/21 05/07/21 Rx mcg (50,000 unit) capsule #24 cap Past Med/Surg History Medical History Anxiety Asthma inhaler daily/prn, nebulizer prn Depression Surgical History H/O section H/O tubal ligation History of colonoscopy History of fusion of cervical spine C5-C6; normal ROM History of open reduction and internal fixation (ORIF) procedure right arm--hardware in place History of wisdom tooth extraction Hx of tonsillectomy Family History Father Brain tumor Prostate cancer Atrial fibrillation Dementia Obsessive compulsive disorder Mother Urinary bladder cancer Hyperlipidemia Hypertension Dementia Venous insufficiency Grandmother Coronary heart disease Breast cancer Daughter Chronic mastoiditis Hearing loss Encephalocele Asthma Brother Brain tumor, Onset Age: 59 glioblastoma Grandfather (Maternal) Family history of diabetes mellitus Daughter Stroke Daughter Panic disorder without agoraphobia Other No family history of adverse response to anesthesia Denies family history of Colon cancer Ovarian cancer Myocardial infarction Social History Smoking Status: Never smoker Second Hand Exposure: Yes (mom smoked); Hx Alcohol Use: No Hx Substance Use: No Preferred Language: Nigerien Communication Ability: Effective Visual Impairment: No Limitations Hearing Ability: Hard of Hearing [employer] Truck [employer] Required: No Beliefs That Will Affect Care: None marital status: Current Living Situation: Spouse current occupational status: employed current occupation: direct support Feels Safe at Home: Yes Childhood Exposure to Second-Hand Smoke: Yes Dental Care, Regularly: Yes Physical Activity Frequency: 1-2 Times per Week Seatbelt Use: always Sunscreen Use: No Assistive Devices: Glasses Review of Systems Review of Systems: Mild distress and fatigue no headache, no visual changes no speech or swallowing issues no chest pain, pressure or palpitations no shortness of breath, cough or wheezes no abdominal pain, nausea or vomiting, diarrhea or constipation no dysuria, hematuria or frequency no focal joint pain or swelling no back pain, CVA tenderness or radicular pain no bruising, bleeding or rashes no focal signs of weakness or numbness or altered sensation no complaints of anxiety or depression.. Physical Exam Physical Exam: The patient appeared well nourished and normally developed. Vital signs as documented. Head exam is normocephalic atraumatic Neck is without JVD, thyromegaly, or carotid bruits. Lungs are clear to auscultation, no focal loss of breath sounds Cardiac exam, Rhythm is regular.. No murmurs, rubs or gallops. Abdominal exam reveals normal bowel sounds, soft non tender, no masses Extremities are nonedematous and both pedal pulses are present Neurologic exam is alert and oriented, no focal loss of strength or sensation Skin is without bruises or rashes Psychologically is without concerns for anxiety or depression.. Results & Data Results & Data ([facility]) Vital Signs (Past 12 Hours) Vital Signs Temp Pulse Pulse Resp BP BP Pulse Ox 05/07/21 13:10 66 17 98 05/07/21 13:00 60 16 144/77 H 98 05/07/21 12:50 63 17 98 05/07/21 12:45 59 L 15 144/73 H 99 05/07/21 12:40 60 16 98 05/07/21 12:30 68 15 137/71 98 05/07/21 12:20 64 13 98 05/07/21 12:15 68 14 145/80 H 98 05/07/21 12:12 71 18 150/80 H 97 05/07/21 12:10 67 16 97 05/07/21 12:08 72 17 150/80 H 99 05/07/21 12:07 69 16 99 05/07/21 11:50 60 22 97 05/07/21 11:15 58 L 16 136/76 98 05/07/21 10:30 82 15 122/83 05/07/21 10:15 71 13 138/74 99 05/07/21 10:00 71 13 128/79 99 05/07/21 09:50 71 20 128/79 97 05/07/21 09:45 73 15 129/78 99 05/07/21 09:41 126/67 05/07/21 09:32 79 16 130/83 97 05/07/21 09:30 85 17 138/89 98 05/07/21 09:14 70 12 152/91 H 99 05/07/21 09:00 98.2 F 74 17 160/87 H 96 Diagnostic Findings Chest X-Ray 05/07/21 09:19 XR chest 1V portable IMPRESSION: 1. No acute cardiopulmonary disease. Chest CTA 05/07/21 10:26 CT angio chest PE protocol Impression: 1. No CTA evidence for pulmonary embolus. 2. No acute chest disease. Electronically signed by: Hemanth Jack M.D. 05/07/2021 10:[address] 05/07/21 11:50 CT head/brain wo con IMPRESSION: 1. No acute intracerebral pathology. Electronically signed by: Hemanth Jack M.D. 05/07/2021 12:10 PM Head CTA 05/07/21 11:50 CT angio head w con IMPRESSION: Essentially negative CT angiogram of the brain with contrast. Neck CTA 05/07/21 11:50 CT angio neck with con Impression: Negative CT angiogram of the neck with contrast. ECG Additional Comments: Nsr without any acute changes PG Care Time/CCT Total # of Minutes Spent Total Time Spent with Patient: Total time spent is greater than 50% in coordination of care (as documented) at patient's floor/unit and/or counseling patient: Coding Level of Care Code INT OBSERVATION CARE 70M LVL 3 Diagnoses Depression F32.9 Chest pain R07.9 Asthma J45.909
[2021-05-07] MEDS ORDERED: NITROGLYCERIN SL 0.4 MG/TAB TAB SL PRN (15:20)
[2021-05-07] MEDS ORDERED: ALBUTEROL HFA 8 GM INHALER INH PRN (15:20)
[2021-05-07] MEDS ORDERED: ALBUTEROL 0.083% NEBU SOLN 3 ML VIAL INH PRN (15:20)
[2021-05-07] MEDS ORDERED: NON-FORMULARY MEDICATION (Cholecalciferol (Vitamin D3) 1,250 mcg (50,000 unit) capsule) PO SCH (15:20)
[2021-05-07] MEDS ORDERED: ONDANSETRON INJ 2 MG/ML 2 ML VIAL IV PRN (15:20)
[2021-05-07] MEDS ORDERED: NAPROXEN 250 MG TAB PO PRN (15:20)
[2021-05-07] MEDS: MoRPHine SULFATE 2 MG/ML CARP IV PRN ×2 (16:16→22:37)
[2021-05-07] MEDS: clonazePAM 0.5 MG TAB PO SCH (20:04)
[2021-05-07] MEDS: ACETAMINOPHEN 500 MG TAB PO PRN (20:04)
[2021-05-08] MEDS: MoRPHine SULFATE 2 MG/ML CARP IV PRN ×2 (01:59→10:15)
[2021-05-08 06:38] LABS: BUN Creatinine Ratio 23.9 (10-20); Calcium 8.1 mg/dl (8.5-10.1); Chol HDL Ratio 3.8 (0-5); Creatinine Clr Calc Pharmacy 82.1 ml/min; Est GFR (African American) 110.7 ml/min; Est GFR (Non-African American) 95.5 ml/min; Potassium 3.9 mmol/L (3.5-5.1)
--- NOTE | 2021-05-08 06:58 | Electrocardiogram Report ---
Test Reason : Blood Pressure : / mmHG Vent. Rate : 071 BPM Atrial Rate : 071 BPM P-R Int : 182 ms QRS Dur : 076 ms QT Int : 380 ms P-R-T Axes : 068 032 053 degrees QTc Int : 412 ms Normal sinus rhythm Normal ECG When compared with ECG of 17-AUG-2015 01:54, No significant change was found Confirmed by Reynaldo Hess ([id number]) on 05/08/2021 6:57:33 AM Referred By: REFERRED SELF Confirmed By:Reynaldo Hess
--- NOTE | 2021-05-08 06:58 | Electrocardiogram Report ---
Test Reason : Blood Pressure : / mmHG Vent. Rate : 072 BPM Atrial Rate : 072 BPM P-R Int : 192 ms QRS Dur : 074 ms QT Int : 414 ms P-R-T Axes : 065 026 050 degrees QTc Int : 453 ms Normal sinus rhythm Normal ECG When compared with ECG of 07-MAY-2021 09:07, No significant change was found Confirmed by Reynaldo Hess ([id number]) on 05/08/2021 6:58:26 AM Referred By: REFERRED SELF Confirmed By:Reynaldo Hess
--- NOTE | 2021-05-08 06:59 | Electrocardiogram Report ---
Test Reason : Blood Pressure : / mmHG Vent. Rate : 067 BPM Atrial Rate : 067 BPM P-R Int : 194 ms QRS Dur : 076 ms QT Int : 418 ms P-R-T Axes : 036 022 031 degrees QTc Int : 441 ms Normal sinus rhythm Normal ECG When compared with ECG of 07-MAY-2021 09:53, No significant change was found Confirmed by Reyanldo Hess ([id number]) on 05/08/2021 6:58:38 AM Referred By: REFERRED SELF Confirmed By:Reynaldo Hess
[2021-05-08] MEDS: ASPIRIN 81 MG ECTAB PO SCH (10:11)
[2021-05-08] MEDS: FLUTICASONE/VILANTEROL 200/25MCG 14 PUFFS/INHALER INH SCH (10:11)
[2021-05-08] MEDS: SERTRALINE HCL 100 MG TABLET PO SCH (10:12)
[2021-05-08] MEDS ORDERED: PROCHLORPERAZINE 5 MG in SYRINGE 4 ML IV ONE (12:53)
[2021-05-08] MEDS ORDERED: PROCHLORPERAZINE 5 MG in SYRINGE 4 ML IV PRN (12:53)
--- NOTE | 2021-05-08 13:56 | XCELERA ---
[id number]
[2021-05-08] MEDS ORDERED: clonazePAM 0.5 MG TAB PO STA (15:50)
--- NOTE | 2021-05-08 17:57 | Hospitalist Progress Note ---
Date of Service May 08, 2021 Assessment & Plan (1) Chest pain: Plan: Patient has chest pain. It was a little worse than when I examined her back which leads me to believe this is may be more musculoskeletal however possibly even a shingles prodrome. To this end however we will trend her troponins EKGs and likely perform an echocardiographic stress test in 1 day. On 05/08 Cardiac stress test is negative. Ct scan of chest is negative for aortic disection, pulmonary emboli. Offered PPI or pepcid, patient refused as she was worreid about nausea, though I explained these meds likely will not cause nausea. Orered lidoderm patch (2) Depression: Plan: Patient does suffer from depression, maintained on sertraline and clonazepam (3) Asthma: Plan: Patient has asthma appears to be quiescent at this time she remains on fluticasone Vilanterol inhaler Plan: DVT prevention is early ambulation less this patient has a prolonged hospital stay. Admission and Anticipated Discharge Date Admission Date: May 07, 2021 Subjective Patient appears anxious. She states she continues to have pain in her midsternum that radiates to her back. Patient reports pain is moderate to severe in intensity. Patient is requesting her clonazepam and to walk around the hoff with her . Patient had an episode of vomiting after stress test. Review of Systems Review of Systems: All systems reviewed & are unremarkable except as noted in HPI & below Physical Exam Physical Exam: The patient appeared well nourished and normally developed. Vital signs as documented. Head exam is normocephalic atraumatic Neck is without JVD, thyromegaly, or carotid bruits. Lungs are clear to auscultation, no focal loss of breath sounds Cardiac exam, Rhythm is regular.. No murmurs, rubs or gallops. Abdominal exam reveals normal bowel sounds, soft non tender, no masses Extremities are nonedematous and both pedal pulses are present Neurologic exam is alert and oriented, no focal loss of strength or sensation Skin is without bruises or rashes Psychologically appears anxious. Results & Data Results & Data ([facility]) Vital Signs (Past 12 Hours) Vital Signs Temp Pulse Pulse Resp BP BP Pulse Ox 05/08/21 16:16 81 05/08/21 15:47 36.4 C L 84 14 95 05/08/21 15:38 154/84 H 05/08/21 11:30 37.0 C 85 14 147/72 H 96 05/08/21 07:48 37.1 C 85 14 133/88 95 05/08/21 06:18 62 PG Care Time/CCT Total # of Minutes Spent Total Time Spent with Patient: Total time spent is greater than 50% in coordination of care (as documented) at patient's floor/unit and/or counseling patient: Coding Level of Care Code 85273 Subseq Obs Care Lvl 3 Diagnoses Chest pain R07.9 Depression F32.9 Asthma J45.909 Time Spent (min) 35
[2021-05-08] MEDS: LIDOCAINE 5% 1 PATCH TD SCH (20:41)
[2021-05-08] MEDS: clonazePAM 0.5 MG TAB PO SCH (20:41)
[2021-05-08] MEDS: ACETAMINOPHEN 500 MG TAB PO PRN (20:41)
--- NOTE | 2021-05-08 22:27 | Electrocardiogram Report ---
Test Reason : Blood Pressure : / mmHG Vent. Rate : 067 BPM Atrial Rate : 067 BPM P-R Int : 182 ms QRS Dur : 086 ms QT Int : 404 ms P-R-T Axes : 068 034 046 degrees QTc Int : 426 ms Normal sinus rhythm Normal ECG When compared with ECG of 07-MAY-2021 10:11, No significant change was found Confirmed by Reynaldo Hess ([id number]) on 05/08/2021 10:26:57 PM Referred By: REFERRED SELF Confirmed By:Reynaldo Hess
--- NOTE | 2021-05-08 23:22 | Electrocardiogram Report ---
Test Reason : Blood Pressure : / mmHG Vent. Rate : 081 BPM Atrial Rate : 081 BPM P-R Int : 170 ms QRS Dur : 076 ms QT Int : 388 ms P-R-T Axes : 073 033 052 degrees QTc Int : 450 ms Normal sinus rhythm Normal ECG When compared with ECG of 07-MAY-2021 22:39, No significant change was found Confirmed by Reynaldo Hess ([id number]) on 05/08/2021 11:21:32 PM Referred By: REFERRED SELF Confirmed By:Reynaldo Hess
[2021-05-09 06:07] LABS: Hemoglobin 14.3 g/dL (12.0-16.0); Mean Corpuscular Hgb Conc 33.3 g/dL (32-36); Mean Corpuscular Volume 84.3 fL (80-100); Mean Platelet Volume 10.1 fL (7.4-10.4); Platelet Count 255 K/uL (130-400); RDW Coefficient of Variation 12.5 % (11.5-14.5); RDW Standard Deviation 38.3 fL (36.4-46.3); White Blood Count 9.68 K/uL (4.8-10.8)
[2021-05-09 06:16] LABS: BUN Creatinine Ratio 22.4 (10-20); Calcium 9.1 mg/dl (8.5-10.1); Creatinine Clr Calc Pharmacy 95.6 ml/min; Est GFR (African American) 116.1 ml/min; Est GFR (Non-African American) 100.2 ml/min; Potassium 3.6 mmol/L (3.5-5.1)
[2021-05-09] MEDS: LIDOCAINE 5% 1 PATCH TD SCH (07:59)
[2021-05-09] MEDS: FLUTICASONE/VILANTEROL 200/25MCG 14 PUFFS/INHALER INH SCH (07:59)
[2021-05-09] MEDS: SERTRALINE HCL 100 MG TABLET PO SCH (08:00)
[2021-05-09] MEDS: ASPIRIN 81 MG ECTAB PO SCH (08:00)
--- NOTE | 2021-05-09 15:16 | Electrocardiogram Report ---
Test Reason : Blood Pressure : / mmHG Vent. Rate : 079 BPM Atrial Rate : 079 BPM P-R Int : 180 ms QRS Dur : 078 ms QT Int : 388 ms P-R-T Axes : 055 019 037 degrees QTc Int : 444 ms Normal sinus rhythm Normal ECG When compared with ECG of 08-MAY-2021 13:36, No significant change was found Confirmed by Alexis Ayala ([id number]) on 05/09/2021 3:16:24 PM Referred By: REFERRED SELF Confirmed By:Alexis Ayala
== END 2021-05-09 14:39 | disposition home or self-care (01) ==
LOC: ED 08:49 → 2E 08:49 → SUATTDRO 14:17 → 2E 15:05

== ENCOUNTER 2021-05-17 15:30 | Observation (INO) ==
[2021-05-17] MEDS ORDERED: ONDANSETRON INJ 2 MG/ML 2 ML VIAL ONE ×2 (16:02→19:43)
[2021-05-17 16:08] LABS: Basophils # (auto) 0.02 K/uL (0-0.2); Basophils % (auto) 0.4 %; Eosinophils # (auto) 0.12 K/uL (0-0.5); Eosinophils % (auto) 2.4 %; Hematocrit (blood only) 44.7 % (37-47); Hemoglobin 15.2 g/dL (12.0-16.0); Immature Granulocytes # (auto) 0.01 K/uL (0.00-0.02); Immature Granulocytes % (auto) 0.2 %; Lymphocytes # (auto) 1.46 K/uL (1.2-3.4); Lymphocytes % (auto) 28.9 %; Mean Corpuscular Hemoglobin 28.6 pg (25-34); Mean Corpuscular Volume 84.2 fL (80-100); Mean Platelet Volume 9.8 fL (7.4-10.4); Monocytes # (auto) 0.34 K/uL (0.11-0.59); Monocytes % (auto) 6.7 %; Neutrophils % (auto) 61.4 %; Platelet Count 280 K/uL (130-400); RDW Coefficient of Variation 12.6 % (11.5-14.5); RDW Standard Deviation 38.2 fL (36.4-46.3); Red Blood Count 5.31 M/uL (4.2-5.4); White Blood Count 5.05 K/uL (4.8-10.8)
[2021-05-17 16:31] LABS: Appearance Urine Clear (Clear); Bacteria Urine Automated Negative (Negative); Blood Urine Negative (Negative); Color Urine Dark Yellow; Epithelial Cell Urine Auto >30 /lpf (0-5); Glucose Urine UA Negative (Negative); Ketones Urine Trace (Negative); Leukocyte Esterase Urine 1+ (Negative); Nitrite Urine Negative (Negative); Protein Urine Trace (Negative); RBC Urine Automated 0-4 /hpf (0-4); Specific Gravity Urine 1.031 (1.000-1.030); Urobilinogen Urine Negative (Negative)
[2021-05-17 16:33] LABS: Albumin Globulin Ratio 1.6 (0.9-2); Albumin Level 4.6 gm/dl (3.4-5.0); BUN Creatinine Ratio 17.8 (10-20); Bilirubin,Total 0.4 mg/dl (0.2-1.0); Calcium 9.9 mg/dl (8.5-10.1); Creatinine Clr Calc Pharmacy 74.8 ml/min; Est GFR (African American) 103.8 ml/min; Est GFR (Non-African American) 89.5 ml/min; Globulin 2.8 gm/dl (2.5-4.0); Potassium 3.8 mmol/L (3.5-5.1); Total Protein 7.4 gm/dl (6.0-8.3)
[2021-05-17] MEDS ORDERED: MoRPHine SULFATE 4 MG/ML 1 ML CARP\\VIAL IV STA ×2 (16:38→19:28)
[2021-05-17] MEDS ORDERED: ONDANSETRON INJ 2 MG/ML 2 ML VIAL IV STA ×2 (16:38→19:42)
[2021-05-17] MEDS ORDERED: SODIUM CHLORIDE 0.9% 1000ML 1,000 ML IV ONE (16:38)
[2021-05-17 16:46] LABS: Bilirubin Urine 1+ (Negative)
--- NOTE | 2021-05-17 16:54 | Emergency Department Note ---
History of Present Illness General Chief complaint: GI Assessment Stated complaint: CHEST PAIN, GOES INTO BACK, NAUSEA Time Seen by Provider: 05/17/21 16:25 Source: patient Mode of arrival: ambulatory Limitations: no limitations History of Present Illness Maximum Pain Intensity: 9 This patient is a 60-year-old female who comes in after having "gallbladder attack". She says she has been having pain over the last week she was seen here on Saturday and had a large stone 1.3 cm without any laboratory abnormalities or signs of acute cholecystitis she was first to see surgery on Saturday but the appointment got canceled due to an emergency for Dr. Allen. She has had severe pain since then. It does come and go to worse at night. Nothing seems to make it better or worse she has been having a very mild diet and has been avoiding fatty or greasy food. Denies dysuria hematuria. No cough or shortness of breath no trauma or injury. It does radiate to her back and makes her right shoulder hurt as well. She has been using ibuprofen as well as OxyIR without relief. Home Medications Medication Instructions Recorded Confirmed Type sertraline 100 mg tablet 200 mg PO QAM tab 03/20/19 05/17/21 History albuterol sulfate 2.5 mg INH Q4 PRN 03/25/19 05/17/21 History clonazepam 0.5 mg tablet 0.5 mg PO HS PRN 03/25/19 05/17/21 History fluticasone furoate 200 1 inh INH QAM #60 ea 02/24/20 05/17/21 Rx mcg-vilanterol 25 mcg/dose inhalation powder (Breo Ellipta) albuterol sulfate 90 mcg/actuation 2 puff INH Q4H PRN #18 gm 05/04/20 05/17/21 Rx aerosol inhaler (Ventolin HFA) cholecalciferol (vitamin D3) 1,250 50,000 unit PO .COMPLEX 90 Days 05/02/21 05/17/21 Rx mcg (50,000 unit) capsule #24 cap amlodipine 2.5 mg tablet 2.5 mg PO PM tab 05/10/21 05/17/21 History pantoprazole 40 mg tablet,delayed 40 mg PO DAILY #90 tab 05/10/21 05/17/21 Rx release cefdinir 300 mg capsule 300 mg PO BID 7 Days #14 cap 05/11/21 05/17/21 Rx Allergies Allergy/AdvReac Type Severity Reaction Status Date / Time No Known Drug Allergies Allergy Unknown Verified 05/17/21 17:08 Past Med/Surg History Medical History Anxiety Asthma inhaler daily/prn, nebulizer prn Depression Surgical History H/O section H/O tubal ligation History of colonoscopy History of fusion of cervical spine C5-C6; normal ROM History of open reduction and internal fixation (ORIF) procedure right arm--hardware in place History of wisdom tooth extraction Hx of tonsillectomy Family History Father Brain tumor Prostate cancer Atrial fibrillation Dementia Obsessive compulsive disorder Mother Urinary bladder cancer Hyperlipidemia Hypertension Dementia Venous insufficiency Grandmother Coronary heart disease Breast cancer Daughter Chronic mastoiditis Hearing loss Encephalocele Asthma Brother Brain tumor, Onset Age: 59 glioblastoma Grandfather (Maternal) Family history of diabetes mellitus Daughter Stroke Daughter Panic disorder without agoraphobia Other No family history of adverse response to anesthesia Denies family history of Colon cancer Ovarian cancer Myocardial infarction Social History Smoking Status: Former smoker Second Hand Exposure: No; Hx Alcohol Use: No Hx Substance Use: No Preferred Language: Sammarinese Communication Ability: Effective Visual Impairment: No Limitations Hearing Ability: Hard of Hearing Electron Microscopist Required: No Beliefs That Will Affect Care: None marital status: Current Living Situation: Family Current Living Situation Comment: and daughter current occupational status: employed current occupation: direct support Feels Safe at Home: Yes Childhood Exposure to Second-Hand Smoke: Yes Dental Care, Regularly: Yes Physical Activity Frequency: 1-2 Times per Week Seatbelt Use: always Sunscreen Use: No Assistive Devices: Glasses Review of Systems A total of 10 systems reviewed and were otherwise negative Physical Exam Vital Signs Vital Signs - 24 hr 05/17/21 15:34 05/17/21 19:00 05/17/21 21:00 Temperature 36.4 C L 36.6 C 36.9 C Temperature Source Temporal Artery Scan Oral Oral Pulse Rate 102 H Pulse Rate [Right] 73 67 Pulse Rhythm [Right] Regular Regular Pulse Strength [Right] Normal Normal Respiratory Rate 18 18 18 Respiratory Effort / Characteristics Non-Labored Non-Labored Spontaneous Non-Labored Spontaneous Respiratory Depth Normal Normal Normal Respiratory Pattern Regular Regular Blood Pressure 148/91 H Blood Pressure [Left Arm] 172/91 H 157/96 H Blood Pressure Mean 110 Blood Pressure Mean [Left Arm] 118 116 Blood Pressure Position [Left Arm] Sitting Lying Pulse Oximetry 98 98 95 Oxygen Delivery Method Room Air Room Air Room Air Sepsis Recent Fever Within 48 Hours No Sepsis New/Unexplained Change in Mental Status No Sepsis Action Taken by Nursing No Action Required General: Well developed well nourished middle aged female who appears in no acute distress, breathing comfortably on room air. Normal speech HEENT: Normal cephalic atraumatic. Pupils are equal round and reactive to light. Extraocular movements are intact. Oropharynx is pink with moist mucous membranes. No swelling of the mouth lips or tongue. Neck: Supple with a midline trachea. No meningeal signs or stiffness, no JVD or bruits. No Stridor. Chest: Clear to auscultation bilaterally. No wheezes or rhonchi. No increased work of breathing. Heart: Regular rate and rhythm without murmurs or gallops. Abdomen: Soft nontender, nondistended without rebound guarding or rigidity. Extremities: No cyanosis clubbing or edema. No calf tenderness or assymetry Spine/Back. Non tender to palpation. No CVA tenderness Skin: Good turgor without rashes. Neurologic exam: Cranial nerves two through 12 are intact. Motor and sensation are intact and symmetrical throughout. Course Administered Medications Lactated Ringer's (Lr) 1,000 mls @ 75 mls/hr IV .[id number] [facility] Stop: 06/16/21 20:44 Last Admin: 05/17/21 21:16 Dose: 75 mls/hr Documented by: [id number] Piperacillin Sod/Tazobactam (Sod 3.375 gm/ Dextrose) 115 mls @ 28.75 mls/hr IV Q8H [facility]; Protocol Stop: 05/27/21 20:44 Last Admin: 05/17/21 22:33 Dose: 28.8 mls/hr Documented by: [id number] Morphine Sulfate (Morphine Sulfate 4 Mg/Ml 1 Ml Carp\\Vial) 3 mg IV Q3H PRN PRN Reason: Pain Stop: 05/31/21 20:37 Last Admin: 05/17/21 21:17 Dose: 3 mg Documented by: [id number] Ondansetron HCl (Ondansetron Inj 2 Mg/Ml 2 Ml Vial) 4 mg IV Q6H PRN PRN Reason: Nausea And Vomiting Stop: 06/16/21 20:37 Last Admin: 05/17/21 21:18 Dose: 4 mg Documented by: [id number] Discontinued Medications Sodium Chloride (Nss 1000ml) 1,000 mls @ 999 mls/hr IV .Q1H1M ONE Stop: 05/17/21 17:38 Last Infusion: 05/17/21 18:51 Dose: 0 mls/hr Documented by: [id number] Admin: 05/17/21 17:10 Dose: 999 mls/hr Documented by: [id number] Morphine Sulfate (Morphine Sulfate 4 Mg/Ml 1 Ml Carp\\Vial) 4 mg IV NOW STA Stop: 05/17/21 16:39 Last Admin: 05/17/21 17:09 Dose: 4 mg Documented by: [id number] Morphine Sulfate (Morphine Sulfate 4 Mg/Ml 1 Ml Carp\\Vial) 4 mg IV NOW STA Stop: 05/17/21 19:29 Last Admin: 05/17/21 19:46 Dose: 4 mg Documented by: [id number] Ondansetron HCl (Ondansetron Inj 2 Mg/Ml 2 Ml Vial) Confirm Administered Dose 4 mg .ROUTE .STK-MED ONE Stop: 05/17/21 16:03 Last Admin: 05/17/21 16:06 Dose: 4 mg Documented by: [id number] Ondansetron HCl (Ondansetron Inj 2 Mg/Ml 2 Ml Vial) 4 mg IV NOW STA Stop: 05/17/21 16:39 Last Admin: 05/17/21 19:55 Dose: Not Given Documented by: [id number] Ondansetron HCl (Ondansetron Inj 2 Mg/Ml 2 Ml Vial) Confirm Administered Dose 4 mg .ROUTE .STK-MED ONE Stop: 05/17/21 19:44 Last Admin: 05/17/21 19:55 Dose: Not Given Documented by: [id number] Ondansetron HCl (Ondansetron Inj 2 Mg/Ml 2 Ml Vial) 4 mg IV NOW STA Stop: 05/17/21 19:43 Last Admin: 05/17/21 19:47 Dose: 4 mg Documented by: [id number] Medical Decision Making Differential Diagnosis Gallbladder disease, pancreatitis, cardiac disease, infection, electrolyte or metabolic Medical Records Attestation: I reviewed the patient's medical records. Home Medications Current Medication List: was personally reviewed by me Laboratory Data Attestation: I reviewed the patient's lab results. Result diagrams: 05/17/21 16:00 05/17/21 16:00 Lab Results 05/17/21 05/17/21 05/17/21 Range/Units 16:00 16:00 16:10 WBC 5.05 (4.8-10.8) K/uL RBC 5.31 (4.2-5.4) M/uL Hgb 15.2 (12.0-16.0) g/dL Hct 44.7 (37-47) % MCV 84.2 (80-100) fL MCH 28.6 (25-34) pg MCHC 34.0 (32-36) g/dL RDW Std Deviation 38.2 (36.4-46.3) fL RDW Coeff of Anish 12.6 (11.5-14.5) % Plt Count 280 (130-400) K/uL MPV 9.8 (7.4-10.4) fL Immature Gran % (Auto) 0.2 % Neut % (Auto) 61.4 % Lymph % (Auto) 28.9 % [place] % (Auto) 6.7 % Eos % (Auto) 2.4 % Baso % (Auto) 0.4 % Neut # (Auto) 3.10 (1.4-6.5) K/uL Lymph # (Auto) 1.46 (1.2-3.4) K/uL [place] # (Auto) 0.34 (0.11-0.59) K/uL Eos # (Auto) 0.12 (0-0.5) K/uL Baso # (Auto) 0.02 (0-0.2) K/uL Immature Gran # (Auto) 0.01 (0.00-0.02) K/uL Sodium 140 (136-145) mmol/L Potassium 3.8 (3.5-5.1) mmol/L Chloride 104 (98-107) mmol/L Carbon Dioxide 29 (21-32) mmol/L Anion Gap 7 (3-11) BUN 13 (6-23) mg/dl Creatinine 0.73 (0.6-1.2) mg/dl Est Cr Clr Drug Dosing 74.8 ml/min Est GFR ( Amer) 103.8 ml/min Est GFR (Non-Af Amer) 89.5 ml/min BUN/Creatinine Ratio 17.8 (10-20) Glucose 109 H (70-99(Fasting)) mg/dl Calcium 9.9 (8.5-10.1) mg/dl Total Bilirubin 0.4 (0.2-1.0) mg/dl AST 22 (13-39) U/L ALT 11 (7-52) U/L Alkaline Phosphatase 107 H (34-104) U/L Total Protein 7.4 (6.0-8.3) gm/dl Albumin 4.6 (3.4-5.0) gm/dl Globulin 2.8 (2.5-4.0) gm/dl Albumin/Globulin Ratio 1.6 (0.9-2) Lipase 13 (11-82) U/L Urine Color Dark Yellow Urine Appearance Clear (Clear) Urine pH 6.0 (4.5-7.5) Ur Specific Bruno 1.031 H (1.000-1.030) Urine Protein Trace H (Negative) Urine Glucose (UA) Negative (Negative) Urine Ketones Trace H (Negative) Urine Blood Negative (Negative) Urine Nitrite Negative (Negative) Urine Bilirubin 1+ H (Negative) Urine Urobilinogen Negative (Negative) Ur Leukocyte Esterase 1+ H (Negative) Urine WBC (Auto) 10-30 H (0-5) /hpf Urine RBC (Auto) 0-4 (0-4) /hpf U Hyaline Cast (Auto) 10-30 H (0-5) /lpf U Epithel Cells (Auto) >30 H (0-5) /lpf Urine Bacteria (Auto) Negative (Negative) SARS-CoV-2, RNA, NAAT (NEGATIVE) 05/17/21 Range/Units 19:50 WBC (4.8-10.8) K/uL RBC (4.2-5.4) M/uL Hgb (12.0-16.0) g/dL Hct (37-47) % MCV (80-100) fL MCH (25-34) pg MCHC (32-36) g/dL RDW Std Deviation (36.4-46.3) fL RDW Coeff of Anish (11.5-14.5) % Plt Count (130-400) K/uL MPV (7.4-10.4) fL Immature Gran % (Auto) % Neut % (Auto) % Lymph % (Auto) % [place] % (Auto) % Eos % (Auto) % Baso % (Auto) % Neut # (Auto) (1.4-6.5) K/uL Lymph # (Auto) (1.2-3.4) K/uL [place] # (Auto) (0.11-0.59) K/uL Eos # (Auto) (0-0.5) K/uL Baso # (Auto) (0-0.2) K/uL Immature Gran # (Auto) (0.00-0.02) K/uL Sodium (136-145) mmol/L Potassium (3.5-5.1) mmol/L Chloride (98-107) mmol/L Carbon Dioxide (21-32) mmol/L Anion Gap (3-11) BUN (6-23) mg/dl Creatinine (0.6-1.2) mg/dl Est Cr Clr Drug Dosing ml/min Est GFR ( Amer) ml/min Est GFR (Non-Af Amer) ml/min BUN/Creatinine Ratio (10-20) Glucose (70-99(Fasting)) mg/dl Calcium (8.5-10.1) mg/dl Total Bilirubin (0.2-1.0) mg/dl AST (13-39) U/L ALT (7-52) U/L Alkaline Phosphatase (34-104) U/L Total Protein (6.0-8.3) gm/dl Albumin (3.4-5.0) gm/dl Globulin (2.5-4.0) gm/dl Albumin/Globulin Ratio (0.9-2) Lipase (11-82) U/L Urine Color Urine Appearance (Clear) Urine pH (4.5-7.5) Ur Specific Bruno (1.000-1.030) Urine Protein (Negative) Urine Glucose (UA) (Negative) Urine Ketones (Negative) Urine Blood (Negative) Urine Nitrite (Negative) Urine Bilirubin (Negative) Urine Urobilinogen (Negative) Ur Leukocyte Esterase (Negative) Urine WBC (Auto) (0-5) /hpf Urine RBC (Auto) (0-4) /hpf U Hyaline Cast (Auto) (0-5) /lpf U Epithel Cells (Auto) (0-5) /lpf Urine Bacteria (Auto) (Negative) SARS-CoV-2, RNA, NAAT NEGATIVE (NEGATIVE) Imaging Data Attestation: I personally reviewed and interpreted this imaging study as follows: My Impression: Chest X-rayno acute infiltrate, failure, pneumothorax seen. Radiologist's Impression: Gallbladder Ultrasound 05/17/21 16:38 US gallbladder HISTORY: 60 years-old Female eval for GB disease acute right upper quadrant abdominal pain COMPARISON: Abdominal ultrasound 05/11/2021, CTA chest 05/07/2021 TECHNIQUE: Multiple real-time sonogram images of the abdominal right upper quadrant were obtained assessing grayscale appearance and color flow FINDINGS: The visualized pancreas is unremarkable. Unremarkable liver. 1.3 cm intraluminal gallstone redemonstrated. No gallbladder wall thickening or pericholecystic fluid. Ringdown artifact of the gallbladder fundus distribution may represent associated adenomyomatosis. Normal common bile duct measures 4 mm. Technologist reports right upper quadrant abdominal tenderness. The imaged right kidney is unremarkable without hydronephrosis. IMPRESSION: 1. Cholelithiasis without sonographic evidence of acute cholecystitis. The lab animal technologist again reports nonspecific right upper quadrant tenderness. 2. No biliary ductal dilation. ACT 112: Negative or not required by law. The above report was generated using voice recognition software. It may contain grammatical, syntax or spelling errors. Electronically signed by: Owen Hirsch M.D. 05/17/2021 6:55 PM ECG Data Attestation: I personally reviewed and interpreted this ECG as follows: Indication: + abdominal pain Rate (beats per minute): 76 Rhythm: + normal sinus ECG Intervals/blocks: + Normal QRS, + Normal QT and + Normal [place] ECG [place]: + Normal ECG ST segments: + Normal ST segments ECG Findings: no PACs or no PVCs Comparison ECG Date: from (05/11/21) Change: no significant change MDM Narrative This patient comes in as described above. She has continuing abdominal pain. She has had this for several days. It is in the upper abdomen and to the right. She was dying with a gallstone several days ago. She has been using a mild diet. IV access was established she was hydrated with IV normal saline. She was given IV morphine and IV Zofran. The patient patient is feeling better with this. She has no elevation of white count or fever to suggest infection LFTs are normal. Ultrasound does show gallstones but no evidence to suggest acute cholecystitis. Given her ongoing symptoms, I do think she is going to need her gallbladder removed. I did consult surgery and she was seen in the ER and they are going to admit her for operative care. Impression & Plan Abdominal pain, Cholelithiasis, Nausea, Lab test negative for COVID-19 virus Discharge Plan Visit Data Chief Complaint: GI Assessment Stated Complaint: CHEST PAIN, GOES INTO BACK, NAUSEA ED Provider: Don Low Discharge Problem: Abdominal pain, Cholelithiasis, Nausea, Lab test negative for COVID-19 virus Patient Disposition: Admitted As Inpatient Discharge Instructions Interventions: ED Discharge Assessment Last Done: 05/17/21 22:22 Forms Stand Alone Forms: [facility] Prescriptions Prescriptions: No Action Breo Ellipta 200-25 mcg/dose blister with device 1 inh INH QAM Qty: 60 RF: 5 albuterol sulfate [Ventolin HFA] 90 mcg/actuation HFA aerosol inhaler 2 puff INH Q4H PRN (Reason: shortness of breath or wheezing) Qty: 18 RF: 3 cholecalciferol (vitamin D3) 1,250 mcg (50,000 unit) capsule 50,000 unit PO .COMPLEX 90 Days Qty: 24 RF: 0 amlodipine 2.5 mg tablet 2.5 mg PO PM RF: 0 pantoprazole 40 mg tablet,delayed release (DR/EC) 40 mg PO DAILY Qty: 90 RF: 1 sertraline 100 mg tablet 200 mg PO QAM RF: 0 clonazepam 0.5 mg Tablet 0.5 mg PO HS PRN (Reason: anxiety/sleep) RF: 0 albuterol sulfate 2.5 mg /3 mL (0.083 %) solution for nebulization 2.5 mg INH Q4 PRN (Reason: shortness of breath or wheezing) RF: 0 cefdinir 300 mg capsule 300 mg PO BID 7 Days Qty: 14 RF: 0 Referrals Referrals: Vibha Duff MD [Primary Care Provider] - Discharge Problem: Abdominal pain Qualifiers: Abdominal location: epigastric Qualified Code(s): R10.13 - Epigastric pain Cholelithiasis Qualifiers: Cholelithiasis location: gallbladder Cholecystitis presence: without cholec ystitis Biliary obstruction: without biliary obstruction Qualified Code(s): K80.20 - Calculus of gallbladder without cholecystitis without obstruction
--- NOTE | 2021-05-17 18:58 | Ultrasound Report ---
US gallbladder HISTORY: 60 years-old Female eval for GB disease acute right upper quadrant abdominal pain COMPARISON: Abdominal ultrasound 05/11/2021, CTA chest 05/07/2021 TECHNIQUE: Multiple real-time sonogram images of the abdominal right upper quadrant were obtained ass essing grayscale appearance and color flow FINDINGS: The visualized pancreas is unremarkable. Unremarkable liver. 1.3 cm intraluminal gallstone redemonstr ated. No gallbladder wall thickening or pericholecystic fluid. Ringdown artifact of the gallbladder f undus distribution may represent associated adenomyomatosis. Normal common bile duct measures 4 mm. T echnologist reports right upper quadrant abdominal tenderness. The imaged right kidney is unremarkable without hydronephrosis. IMPRESSION: 1. Cholelithiasis without sonographic evidence of acute cholecystitis. The communications technologist molly lau reports nonspecific right upper quadrant tenderness. 2. No biliary ductal dilation. ACT 112: Negative or not required by law. The above report was generated using voice recognition software. It may contain grammatical, syntax o r spelling errors. Electronically signed by: Owen Hirsch M.D. 05/17/2021 6:55 PM
--- NOTE | 2021-05-17 20:18 | History & Physical Report ---
Date of Service May 17, 2021 Assessment & Plan (1) Gall stone: Plan: Patient's clinical presentation as well as her imaging will admit her to the hospital proceeding as follows: Analgesics will be provided Antiemetics to be provided We will hydrate her with IV fluids We will Davion labs in the morning History antibiotics, will start Zosyn in the emergency department will allow clear liquids tonight but make n.p.o. after midnight We have tentatively planned for laparoscopic, possible open cholecystectomy and possible intraoperative cholangiogram tomorrow. I discussed the risks, benefits and expected postoperative course with the patient and she wishes to proceed. We will follow up on Covid test results We will preoperative chest x-ray Additional recommendations were made based on her postoperative course. SCDs will be used for DVT prevention, no chemical means due to planned surgery Should be a level 1 full code History of Present Illness Chief Complaint: Abdominal pain Primary Care Provider: Vibha Duff MD Is a 60-year-old female with a known history of gallstones. The patient was seen in the emergency department on 05/11/2021 secondary to epigastric and right upper quadrant pain. She was seen in the emergency department where patient had a gallbladder ultrasound that identified cholelithiasis without cholecystitis. Patient not have a fever, elevated white blood cell count, or elevated LFTs and was therefore deemed stable for discharge home. The plan was for patient to f ollow-up with Dr. Allen last week however this appointment got canceled due to an emergency surgery on the part of the surgeon. She said that her appoint with Dr. Allen was rescheduled for tomorrow which is 05/18/2021. Patient represented to [facility] emergency department secondary to ongoing abdominal pain. The patient says that she has been having postprandial pain since yesterday. She says the pain is located in the epigastric area and right upper quadrant and radiates to her shoulder. She has had nausea without vomiting. She notes that the pain is worse after eating and is improved with pain medicines administered by the emergency department. She has not had any fevers, shakes, chills. She notes that her most recent oral intake was at approximately 2:00 PM today. She has had no prior abdominal surgeries Today in the emergency department patient had a repeat gallbladder ultrasound that showed cholelithiasis without evidence of cholecystitis. Labs include a CBC her white blood cell count, hemoglobin, hematocrit, and platelet count are all normal. Chemistry profile showed sodium, potassium, BUN, and creatinine were all normal. There is no elevation of patient's bilirubin or transaminases. There is a slight elevation of her alkaline phosphatase at 107. Her lipase was normal. Urinalysis did show 1+ leukocyte Estrace and 10-30 white blood cells per high-power field. The specimen was negative for bacteria. A Covid test has been ordered and is pending. At the time of my interview the patient was resting comfortably in bed and she was in no distress. Allergies Allergy/AdvReac Type Severity Reaction Status Date / Time No Known Drug Allergies Allergy Unknown Verified 05/17/21 17:08 Home Medications Medication Instructions Recorded Confirmed Type sertraline 100 mg tablet 200 mg PO QAM tab 03/20/19 05/17/21 History albuterol sulfate 2.5 mg INH Q4 PRN 03/25/19 05/17/21 History clonazepam 0.5 mg tablet 0.5 mg PO HS PRN 03/25/19 05/17/21 History fluticasone furoate 200 1 inh INH QAM #60 ea 02/24/20 05/17/21 Rx mcg-vilanterol 25 mcg/dose inhalation powder (Breo Ellipta) albuterol sulfate 90 mcg/actuation 2 puff INH Q4H PRN #18 gm 05/04/20 05/17/21 Rx aerosol inhaler (Ventolin HFA) cholecalciferol (vitamin D3) 1,250 50,000 unit PO .COMPLEX 90 Days 05/02/21 05/17/21 Rx mcg (50,000 unit) capsule #24 cap amlodipine 2.5 mg tablet 2.5 mg PO PM tab 05/10/21 05/17/21 History pantoprazole 40 mg tablet,delayed 40 mg PO DAILY #90 tab 05/10/21 05/17/21 Rx release cefdinir 300 mg capsule 300 mg PO BID 7 Days #14 cap 05/11/21 05/17/21 Rx Past Med/Surg History Medical History Anxiety Asthma inhaler daily/prn, nebulizer prn Depression Surgical History H/O section H/O tubal ligation History of colonoscopy History of fusion of cervical spine C5-C6; normal ROM History of open reduction and internal fixation (ORIF) procedure right arm--hardware in place History of wisdom tooth extraction Hx of tonsillectomy Family History Father Brain tumor Prostate cancer Atrial fibrillation Dementia Obsessive compulsive disorder Mother Urinary bladder cancer Hyperlipidemia Hypertension Dementia Venous insufficiency Grandmother Coronary heart disease Breast cancer Daughter Chronic mastoiditis Hearing loss Encephalocele Asthma Brother Brain tumor, Onset Age: 59 glioblastoma Grandfather (Maternal) Family history of diabetes mellitus Daughter Stroke Daughter Panic disorder without agoraphobia Other No family history of adverse response to anesthesia Denies family history of Colon cancer Ovarian cancer Myocardial infarction Social History Smoking Status: Former smoker Second Hand Exposure: No; Hx Alcohol Use: No Hx Substance Use: No Preferred Language: Nigerian Communication Ability: Effective Visual Impairment: No Limitations Hearing Ability: Hard of Hearing Concession Worker Required: No Beliefs That Will Affect Care: None marital status: Current Living Situation: Family Current Living Situation Comment: and daughter current occupational status: employed current occupation: direct support Feels Safe at Home: Yes Childhood Exposure to Second-Hand Smoke: Yes Dental Care, Regularly: Yes Physical Activity Frequency: 1-2 Times per Week Seatbelt Use: always Sunscreen Use: No Assistive Devices: Glasses Review of Systems Constitutional: no fever and no chills Eyes: no diplopia Ear, Nose, Mouth, Throat: no ear pain Respiratory: no cough and no dyspnea Cardiovascular: no chest pain Gastrointestinal: + abdominal pain and + nausea; no vomiting Genitourinary: no dysuria Musculoskeletal: no back pain Integumentary: no rash Neurologic: no localized weakness Physical Exam Constitutional: well developed and well nourished; no acute distress Eyes: PERRL, conjunctivae normal, anicteric sclerae ENMT: Ears: no hearing impairment Mouth: no oropharynx abnormality Neck: trachea midline Respiratory: normal respiratory effort, lungs clear to auscultation Cardiovascular: Rate/Rhythm: regular rate and regular rhythm Gastrointestinal (Abdomen): Soft and nondistended. There is no rebound tenderness or guarding. There is pain with palpation in the right upper quadrant positive Ge sign Musculoskeletal: no Calf tenderness Neurologic: moves all extremities Psychiatric: A+Ox3, euthymic affect Results & Data Results & Data ([facility]) Vital Signs (Past 12 Hours) Vital Signs Temp Pulse Pulse Resp BP BP Pulse Ox 05/17/21 19:00 36.6 C 73 18 172/91 H 98 05/17/21 15:34 36.4 C L 102 H 18 148/91 H 98 Supervising Physician Co-Signing Physician Notes Dr. Longpatient with severe biliary colic and likely chronic cholecystitis Her gallbladder is very distended. I did see her in the emergency room Plan to proceed tomorrow with laparoscopic cholecystectomy PG Care Time/CCT Total # of Minutes Spent Total Time Spent with Patient: Total time spent is greater than 50% in coordination of care (as documented) at patient's floor/unit and/or counseling patient: Coding Level of Care Code INT OBSERVATION CARE 70M LVL 3 Diagnoses Gall stone K80.20 Biliary obstruction: without biliary obstruction Cholecystitis presence: without cholecystitis (1) Gall stone Biliary obstruction: without biliary obstruction Cholecystitis presence: without cholecystitis Qualified Code(s): K80.20 - Calculus of gallbladder without cholecystitis without obstruction
[2021-05-17] MEDS ORDERED: PIPERACILL/TAZOBAC CONSULT ACTIVE PRN (20:38)
[2021-05-17] MEDS ORDERED: ACETAMINOPHEN 1,000 MG/100 ML VIAL IV PRN (20:38)
[2021-05-17] MEDS: LACTATED RINGER'S 1,000 ML IV SCH (21:16)
[2021-05-17] MEDS: MoRPHine SULFATE 4 MG/ML 1 ML CARP\\VIAL IV PRN (21:17)
[2021-05-17] MEDS: ONDANSETRON INJ 2 MG/ML 2 ML VIAL IV PRN (21:18)
--- NOTE | 2021-05-17 21:26 | Hospitalist Consultation ---
Date of Consultation May 17, 2021 Assessment & Plan (1) Gall stone: (2) Anxiety: (3) Depression: (4) HTN (hypertension): (5) Asthma: Naima Reaves is a 60-year-old female with history of anxiety, depression, hypertension, asthma, GERD, and known history of gallstone who presents to hospital due to abdominal pain. Admitted by General Surgery for cholecystectomy. Gallstone Patient to be admitted for planned laparoscopic, possible open cholecystectomy and possible intraoperative cholangiogram tomorrow Patient is low risk 0.6% risk of perioperative mortality per MICA INSPECTOR score Agree with Zosyn empirically Analgesics and antiemetics per general surgery IV fluids per general surgery Clear liquids, n.p.o. after midnight Asthma Well-controlled on daily Breo Ellipta Has as needed albuterol reports has not needed it in several months Continue daily inhaler, albuterol as needed Hypertension Overall well controlled currently mildly hypertensive, but most likely due to acute pain Continue to manage pain with as needed analgesics Continue daily amlodipine Depression/anxiety Continue sertraline Has clonazepam as needed at bedtime at home In the setting of n.p.o., can consider IV Ativan if needed for acute anxiety GERD Continue home pantoprazole DVT prophylaxis: SCDs Dispo: Admit to MedSur, likely cholecystectomy tomorrow FEN: Clear liquids, n.p.o. at midnight, LR per surgery CODE STATUS: Full Thank you for allowing us to participate in the care of this patient. For further details, please see attending physician's attestation. Supervising Physician Co-Signing Physician Notes Attending addendum: I have supervised the medical residents activities, and agree with the H&P unless as otherwise noted. Assessment and Plan: Gallstone/plan for surgery tomorrow Continue antibiotics, analgesic and antiemetics as per primary service Asthma- Continue Breo Ellipta Albuterol as needed Hypertension- Continue amlodipine as noted Pain management to control secondary rises Depression/anxiety- Continue sertraline and clonazepam as noted GERD- Resume pantoprazole post surgery We will follow during hospital stay History of Present Illness History of Present Illness Naima Reaves is a 60-year-old female with history of anxiety, depression, hypertension, asthma, GERD, and known history of gallstone who presents to hospital due to abdominal pain. On 05/11/2021 the patient had a gallbladder ultrasound that showed cholelithiasis without cholecystitis. At that time, patient did not seem toxic or have signs of infection so was discharged home to have outpatient follow-up with general surgery. The appointment was canceled due to surgeon having to perform emergency surgery, and the patient was rescheduled for later on. Today, she presented with abdominal pain since yesterday. Notes that it has been located in the epigastric and right upper quadrant area. Radiates to her right shoulder. She has had associated nausea, though she has not vomited. Pain seems to be worse after eating. Denies fever, chills, chest pain, palpitations, shortness of breath, dysuria, suprapubic pain. Work-up in the ED today showed white count of 5.05, hemoglobin 15.2, platelet count 280, normal electrolytes, mildly elevated alk phos to 107, normal lipase. UA showed trace protein, trace ketones, 1+ bilirubin, 1+ leuk esterase, 10-30 WBCs, hyaline casts, more than 30 epithelial cells. Gallbladder ultrasound showing cholelithiasis without sonographic evidence of acute cholecystitis, no biliary duct dilation. General surgery evaluated patient and will admit to tentatively plan for laparoscopic cholecystectomy tomorrow. She will be started on Zosyn, analgesics, antiemetics, IV fluids. Allergies Allergy/AdvReac Type Severity Reaction Status Date / Time No Known Drug Allergies Allergy Unknown Verified 05/17/21 17:08 Home Medications Medication Instructions Recorded Confirmed Type sertraline 100 mg tablet 200 mg PO QAM tab 03/20/19 05/17/21 History albuterol sulfate 2.5 mg INH Q4 PRN 03/25/19 05/17/21 History clonazepam 0.5 mg tablet 0.5 mg PO HS PRN 03/25/19 05/17/21 History fluticasone furoate 200 1 inh INH QAM #60 ea 02/24/20 05/17/21 Rx mcg-vilanterol 25 mcg/dose inhalation powder (Breo Ellipta) albuterol sulfate 90 mcg/actuation 2 puff INH Q4H PRN #18 gm 05/04/20 05/17/21 Rx aerosol inhaler (Ventolin HFA) cholecalciferol (vitamin D3) 1,250 50,000 unit PO .COMPLEX 90 Days 05/02/21 05/17/21 Rx mcg (50,000 unit) capsule #24 cap amlodipine 2.5 mg tablet 2.5 mg PO PM tab 05/10/21 05/17/21 History pantoprazole 40 mg tablet,delayed 40 mg PO DAILY #90 tab 05/10/21 05/17/21 Rx release cefdinir 300 mg capsule 300 mg PO BID 7 Days #14 cap 05/11/21 05/17/21 Rx hydrocodone 5 mg-acetaminophen 325 1 - 2 tab PO .q4h- q6h PRN #15 tab 05/18/21 Rx mg tablet Patient History Medical History Anxiety Asthma inhaler daily/prn, nebulizer prn Depression Surgical History H/O section H/O tubal ligation History of colonoscopy History of fusion of cervical spine C5-C6; normal ROM History of open reduction and internal fixation (ORIF) procedure right arm--hardware in place History of wisdom tooth extraction Hx of tonsillectomy Family History Father Brain tumor Prostate cancer Atrial fibrillation Dementia Obsessive compulsive disorder Mother Urinary bladder cancer Hyperlipidemia Hypertension Dementia Venous insufficiency Grandmother Coronary heart disease Breast cancer Daughter Chronic mastoiditis Hearing loss Encephalocele Asthma Brother Brain tumor, Onset Age: 59 glioblastoma Grandfather (Maternal) Family history of diabetes mellitus Daughter Stroke Daughter Panic disorder without agoraphobia Other No family history of adverse response to anesthesia Denies family history of Colon cancer Ovarian cancer Myocardial infarction Social History Smoking Status: Former smoker Second Hand Exposure: No; Hx Alcohol Use: No Hx Substance Use: No Preferred Language: Spanish Communication Ability: Effective Visual Impairment: No Limitations Hearing Ability: Hard of Hearing [facility] Required: No Beliefs That Will Affect Care: None marital status: Current Living Situation: Family Current Living Situation Comment: and daughter current occupational status: employed current occupation: direct support Other Information That Helps Us Care for You: No Feels Safe at Home: Yes Safety Concerns: Feels Safe At This Time Childhood Exposure to Second-Hand Smoke: Yes Dental Care, Regularly: Yes Physical Activity Frequency: 1-2 Times per Week Seatbelt Use: always Sunscreen Use: No Assistive Devices: Glasses Review of Systems Review of Systems: All systems reviewed & are unremarkable except as noted in HPI & below Physical Exam Physical Exam: GENERAL: A&Ox3. NAD. HEENT: PERRL, EOMI. Moist mucous membranes. NECK: No JVD. No lymphadenopathy. CHEST/LUNGS: CTAB A/P. No crackles, wheezes, rales, rhonchi. HEART: RRR. No m/g/r. No carotid bruits. ABDOMEN: Deferred due to pain. Gen Surg already evaluated. EXTREMITIES: No cyanosis, no clubbing, no edema SKIN: Warm and dry. No rashes or lesions. PSYCHIATRIC: Euthymic affect, no SI, no pressured speech, no hallucinations NEUROLOGIC: No FND. Results & Data Results & Data ([facility]) Vital Signs (Past 12 Hours) Vital Signs Temp Pulse Pulse Resp BP BP Pulse Ox 05/17/21 19:00 36.6 C 73 18 172/91 H 98 05/17/21 15:34 36.4 C L 102 H 18 148/91 H 98 Resident Activity Tracking Resident Involvement: Resident Care Provided Care Provided: Adult Hospital Medicine (1) Gall stone Biliary obstruction: without biliary obstruction Cholecystitis presence: without cholecystitis Qualified Code(s): K80.20 - Calculus of gallbladder without cholecystitis without obstruction
[2021-05-17] MEDS: PIPERACILLIN/TAZOBACTAM 3.375 GM in DEXTROSE 5% 100 ML IV SCH (22:33)
[2021-05-17] MEDS ORDERED: ALBUTEROL HFA 8 GM INHALER INH PRN (22:56)
[2021-05-17] MEDS ORDERED: ALBUTEROL 0.083% NEBU SOLN 3 ML VIAL INH PRN (22:56)
[2021-05-18] MEDS: MoRPHine SULFATE 4 MG/ML 1 ML CARP\\VIAL IV PRN ×5 (00:14→20:07)
[2021-05-18] MEDS: ONDANSETRON INJ 2 MG/ML 2 ML VIAL IV PRN ×2 (00:15→08:59)
[2021-05-18] MEDS: amLODIPine BESYLATE 5 MG TAB PO SCH ×2 (00:17→20:12)
[2021-05-18] MEDS: PIPERACILLIN/TAZOBACTAM 3.375 GM in DEXTROSE 5% 100 ML IV SCH ×3 (04:50→23:24)
[2021-05-18 06:01] LABS: Basophils # (auto) 0.01 K/uL (0-0.2); Basophils % (auto) 0.2 %; Eosinophils # (auto) 0.13 K/uL (0-0.5); Eosinophils % (auto) 2.2 %; Hematocrit (blood only) 40.2 % (37-47); Hemoglobin 13.7 g/dL (12.0-16.0); Lymphocytes # (auto) 1.23 K/uL (1.2-3.4); Lymphocytes % (auto) 21.2 %; Mean Corpuscular Hemoglobin 28.7 pg (25-34); Mean Corpuscular Hgb Conc 34.1 g/dL (32-36); Mean Corpuscular Volume 84.1 fL (80-100); Mean Platelet Volume 9.6 fL (7.4-10.4); Monocytes # (auto) 0.37 K/uL (0.11-0.59); Monocytes % (auto) 6.4 %; Neutrophils # (auto) 4.07 K/uL (1.4-6.5); Platelet Count 249 K/uL (130-400); RDW Coefficient of Variation 12.9 % (11.5-14.5); RDW Standard Deviation 39.2 fL (36.4-46.3); Red Blood Count 4.78 M/uL (4.2-5.4); White Blood Count 5.81 K/uL (4.8-10.8)
[2021-05-18 06:23] LABS: Albumin Globulin Ratio 1.8 (0.9-2); Albumin Level 3.8 gm/dl (3.4-5.0); BUN Creatinine Ratio 16.7 (10-20); Bilirubin,Total 0.4 mg/dl (0.2-1.0); Calcium 8.8 mg/dl (8.5-10.1); Creatinine Clr Calc Pharmacy 101.5 ml/min; Est GFR (African American) 118.9 ml/min; Est GFR (Non-African American) 102.6 ml/min; Globulin 2.1 gm/dl (2.5-4.0); Potassium 3.7 mmol/L (3.5-5.1); Total Protein 5.9 gm/dl (6.0-8.3)
--- NOTE | 2021-05-18 06:30 | History & Physical Bridge Note ---
Date of Service May 18, 2021 History & Physical Bridge Note I have examined the patient, reviewed the History & Physical and in the interval since the performance of the History & Physical I have noted the following changes of clinical significance: no changes noted
--- NOTE | 2021-05-18 07:29 | XRay Report ---
SINGLE VIEW CHEST CLINICAL HISTORY: Preoperative examination. Cholecystectomy. FINDINGS: An AP, portable, upright chest radiograph is compared to study dated 05/11/2021 and correlat ed with chest CT dated 05/07/2021. The cardiomediastinal silhouette is unremarkable. The lungs and pleu ral spaces are clear. No pneumothorax is seen. The skeletal structures are osteopenic. The bony thora x is grossly intact. Postoperative change is partially visualized in the right humeral shaft. IMPRESSION: No active disease in the chest. ACT 112: Negative or not required by law. Electronically signed by: Johan Bland M.D. 05/18/2021 7:27 AM
[2021-05-18] MEDS: PANTOprazole 40 MG TAB PO SCH (09:06)
[2021-05-18] MEDS: FLUTICASONE/VILANTEROL 200/25MCG 14 PUFFS/INHALER INH SCH (09:06)
[2021-05-18] MEDS: SERTRALINE HCL 100 MG TABLET PO SCH (09:06)
[2021-05-18] MEDS ORDERED: fentaNYL citrate 100 MCG/2 ML VIAL ONE ×2 (09:44→11:25)
[2021-05-18] MEDS ORDERED: MIDAZOLAM HCL 1 MG/ML 2ML VIAL ONE (09:44)
[2021-05-18] MEDS ORDERED: ePHEDrine sulfate 50 MG/ML AMP IV PRN (09:52)
[2021-05-18] MEDS ORDERED: ATROPINE SULFATE 0.1 MG/ML 10ML SYR IV PRN (09:52)
[2021-05-18] MEDS ORDERED: ONDANSETRON INJ 2 MG/ML 2 ML VIAL IV PRN ×2 (09:52→14:17)
[2021-05-18] MEDS ORDERED: fentaNYL citrate 100 MCG/2 ML VIAL IV PRN (09:52)
--- NOTE | 2021-05-18 09:52 | Anesthesiology Consultation ---
Date of Service May 18, 2021 Assessment & Plan Chart Review Chart Review: Acceptable Risk for Surgery and Patient NOT seen in Pre Admission Testing Consults Requested none ASA ASA2 Proposed Anesthesia Anesthesia Type: General Risk / Benefits Reviewed With: PT / POA / Parent / Guardian, Accepts Plan and Informed Consent Obtained History Surgery Operation Date: 05/18/21 10:25 Proposed Procedures p Laparoscopic Cholecystectomy versus Open Cholecystectomy, Possible Intra- Operative Cholangiogram - Kenny Long MD, FACS Height/Weight Height: 5 ft 2 in Weight: 69.9 kg Allergies Allergy/AdvReac Type Severity Reaction Status Date / Time No Known Drug Allergies Allergy Unknown Verified 05/17/21 17:08 Medications Home Medications Medication Instructions Recorded Confirmed Last Taken sertraline 100 mg tablet 200 mg PO QAM tab 03/20/19 05/17/21 06/23/20 08:00 albuterol sulfate 2.5 mg INH Q4 PRN 03/25/19 05/17/21 Unknown clonazepam 0.5 mg tablet 0.5 mg PO HS PRN 03/25/19 05/17/21 06/22/20 22:00 fluticasone furoate 200 1 inh INH QAM #60 ea 02/24/20 05/17/21 06/23/20 20:00 mcg-vilanterol 25 mcg/dose inhalation powder (Breo Ellipta) albuterol sulfate 90 mcg/actuation 2 puff INH Q4H PRN #18 gm 05/04/20 05/17/21 Unknown aerosol inhaler (Ventolin HFA) cholecalciferol (vitamin D3) 1,250 50,000 unit PO .COMPLEX 90 Days 05/02/21 05/17/21 Unknown mcg (50,000 unit) capsule #24 cap amlodipine 2.5 mg tablet 2.5 mg PO PM tab 05/10/21 05/17/21 Unknown pantoprazole 40 mg tablet,delayed 40 mg PO DAILY #90 tab 05/10/21 05/17/21 Unknown release cefdinir 300 mg capsule 300 mg PO BID 7 Days #14 cap 05/11/21 05/17/21 Unknown Active Medications Generic Name Dose Route Start Last Admin Trade Name Freq PRN Reason Stop Dose Admin Amlodipine Besylate 2.5 mg 05/17/21 22:56 05/18/21 00:17 Amlodipine Besylate 5 Mg Tab PO 06/16/21 22:55 2.5 mg PM MASON Administration Fluticasone/Vilanterol 1 puffs 05/18/21 09:00 05/18/21 09:06 Fluticasone/Vilanterol 200/25mcg 14 Puffs/Inhaler INH 06/17/21 08:59 Not Given QAM MASON Lactated Ringer's 1,000 mls @ 75 mls/hr 05/17/21 20:45 05/18/21 08:58 Lr IV 06/16/21 20:44 Infused .[id number] MASON Infusion Piperacillin Sod/Tazobactam 115 mls @ 28.75 mls/hr 05/17/21 20:45 05/18/21 08:58 Sod 3.375 gm/ Dextrose IV 05/27/21 20:44 Infused Q8H MASON Infusion Protocol Morphine Sulfate 3 mg 05/17/21 20:38 05/18/21 08:59 Morphine Sulfate 4 Mg/Ml 1 Ml Carp\Vial IV 05/31/21 20:37 3 mg Q3H PRN Administration Pain Ondansetron HCl 4 mg 05/17/21 20:38 05/18/21 08:59 Ondansetron Inj 2 Mg/Ml 2 Ml Vial IV 06/16/21 20:37 4 mg Q6H PRN Administration Nausea And Vomiting Pantoprazole Sodium 40 mg 05/18/21 09:00 05/18/21 09:06 Pantoprazole 40 Mg Tab PO 06/17/21 08:59 Not Given DAILY MASON Sertraline HCl 200 mg 05/18/21 09:00 05/18/21 09:06 Sertraline Hcl 100 Mg Tablet PO 06/17/21 08:59 Not Given QAM MASON NPO Date Last Intake of Fluids: 05/17/21 Time Last Intake of Fluids: 15:00 Date Last Intake of Solids: 05/17/21 Time Last Intake of Solids: 15:00 Past Medical History Medical History Anxiety Asthma inhaler daily/prn, nebulizer prn Depression Exercise / Class Metabolic Activity II 4-5 Yardwork/Stairs/Walk up hill Past Family History Family History Father Brain tumor Prostate cancer Atrial fibrillation Dementia Obsessive compulsive disorder Mother Urinary bladder cancer Hyperlipidemia Hypertension Dementia Venous insufficiency Grandmother Coronary heart disease Breast cancer Daughter Chronic mastoiditis Hearing loss Encephalocele Asthma Brother Brain tumor, Onset Age: 59 glioblastoma Grandfather (Maternal) Family history of diabetes mellitus Daughter Stroke Daughter Panic disorder without agoraphobia Other No family history of adverse response to anesthesia Denies family history of Colon cancer Ovarian cancer Myocardial infarction Past Surgical History Surgical History H/O section H/O tubal ligation History of colonoscopy History of fusion of cervical spine C5-C6; normal ROM History of open reduction and internal fixation (ORIF) procedure right arm--hardware in place History of wisdom tooth extraction Hx of tonsillectomy Past Anesthesia History No Hx of Anesthesia Complications and No Family Hx of Anesthesia Complications History of PONV No Hx of PONV and No Hx of Motion Sickness Social History Smoking Status: Former smoker tobacco type: e-cigarettes Hx Alcohol Use: No Hx Substance Use: No substance use type: does not use Physical Exam Vital Signs Last Vital Signs Temp 37.1 C 05/18/21 09:10 Pulse 78 05/18/21 09:10 Resp 18 05/18/21 09:10 BP 157/88 H 05/18/21 09:10 Pulse Ox 95 05/18/21 09:10 ENMT Mouth: no dentition abnormality Thyromental Distance: > or= 3.5 Finger Breadths Mallampati Class: II Neck normal visual inspection Respiratory normal respiratory effort Auscultation: lungs clear to auscultation bilaterally Cardiovascular Rate/Rhythm: regular rate and regular rhythm Psychiatric Orientation: alert Testing Laboratory Results 05/18/21 05:44 05/18/21 05:44 Urine Color Dark Yellow 05/17/21 16:10 Urine Appearance Clear (Clear) 05/17/21 16:10 Urine pH 6.0 (4.5-7.5) 05/17/21 16:10 Ur Specific [place] 1.031 (1.000-1.030) H 05/17/21 16:10 Urine Protein Trace (Negative) H 05/17/21 16:10 Urine Glucose (UA) Negative (Negative) 05/17/21 16:10 Urine Ketones Trace (Negative) H 05/17/21 16:10 Urine Nitrite Negative (Negative) 05/17/21 16:10 Ur Leukocyte Esterase 1+ (Negative) H 05/17/21 16:10 Urine WBC (Auto) 10-30 /hpf (0-5) H 05/17/21 16:10 Urine RBC (Auto) 0-4 /hpf (0-4) 05/17/21 16:10 U Hyaline Cast (Auto) 10-30 /lpf (0-5) H 05/17/21 16:10 U Epithel Cells (Auto) >30 /lpf (0-5) H 05/17/21 16:10 Urine Bacteria (Auto) Negative (Negative) 05/17/21 16:10 Stress Test Date: 05/08/21 Findings: + WNL
[2021-05-18] MEDS: LACTATED RINGER'S 1,000 ML IV SCH ×2 (10:16→23:24)
[2021-05-18] MEDS ORDERED: SUGAMMADEX SODIUM 200 MG/2 ML VIAL IV ONE (11:06)
[2021-05-18] MEDS ORDERED: BUPIVACAINE 0.5 % 5 MG/1 ML MPF 30ML VIAL ONE (11:06)
[2021-05-18] MEDS ORDERED: DEXAMETHASONE SOD INJ 4 MG/ML VIAL ONE (11:24)
[2021-05-18] MEDS ORDERED: ONDANSETRON INJ 2 MG/ML 2 ML VIAL ONE (11:24)
[2021-05-18] MEDS ORDERED: LIDOCAINE 2% 2 ML VIAL/AMP(20MG/ML) INFIL ONE (11:24)
[2021-05-18] MEDS ORDERED: KETOROLAC 30 MG/ML VIAL ONE (11:24)
[2021-05-18] MEDS ORDERED: PROPOFOL IV EMULSION 10 MG/ML 20 ML VIAL IV ONE (11:24)
[2021-05-18] MEDS ORDERED: ROCURONIUM BROMIDE 10 MG/ML 5 ML VIAL IV ONE (11:24)
[2021-05-18] MEDS ORDERED: LABETALOL HCL IV 5 MG/ML 20ML IV ONE (11:41)
[2021-05-18] MEDS ORDERED: FLOSEAL HEMOSTATIC MATRIX 10ML TOP ONE (11:43)
[2021-05-18] MEDS ORDERED: ACETAMINOPHEN 1,000 MG/100 ML VIAL IV ONE ×2 (11:55→12:01)
--- NOTE | 2021-05-18 11:55 | Post Operative Brief Note ---
PG Immediate Post Op with CF Date of Surgery May 18, 2021 Pre & Post Diagnosis Operation Date: 05/18/21 10:25 Pre-Op Diagnosis: 1.Severe biliary colic 2. Chronic cholecystitis Post-Op Diagnosis: 1.Severe biliary colic 2.Chronic cholecystitis I identified the patient and participated in the time-out.: Yes Procedure Operation Date: 05/18/21 10:25 Actual Procedures p Laparoscopic Cholecystectomy(Not Applicable) - Kenny Long MD, FACS Surgeon Kenny Long MD, FACS Forestry Professor Harman Dobbs Estimated Blood Loss 10 Findings Consistent with Post-Op Diagnosis Chronic scar tissue with stone in the neck of the gallbladder Specimens Specimen Description: A. Gallbladder and contents
[2021-05-18] MEDS ORDERED: PROMETHAZINE HCL 6.25 MG in SODIUM CHLORIDE 0.9% 50 ML IV STA (12:38)
[2021-05-18] MEDS ORDERED: SODIUM CHLORIDE 0.9% 50 ML BAG ONE (12:41)
[2021-05-18] MEDS ORDERED: PROMETHAZINE HCL INJ 25 MG/ML 1 ML VIAL ONE (12:41)
--- NOTE | 2021-05-18 13:07 | Operative Report (OR) ---
DATE OF OPERATION: 05/18/2021. NAME OF OPERATION: Laparoscopic cholecystectomy. PREOPERATIVE DIAGNOSIS: Biliary colic. POSTOPERATIVE DIAGNOSIS: Biliary colic with severe chronic cholecystitis and acute cholecystitis. STAFF SURGEON: Kenny Long MD MANAGER CRITICAL CARE UNIT: Neida Haas PA-C ANESTHESIA: General. DESCRIPTION OF PROCEDURE: The patient was brought in the operating room and placed on the operating table in supine position. Her abdomen was prepped and draped in the usual fashion. Pneumatic stocki ngs and orogastric tube were placed. A 0.5% plain Marcaine was used to anesthetize all incisions. I ncision was made above the umbilicus, carrying dissection down to the fascia, placing a Veress needle producing pneumoperitoneum. An 11 mm port was placed at this level and under visualization, three 5 mm ports were placed, one cephalad and two laterally. The patient was placed in reverse Trendelenbu rg position, rotated to the left. Her gallbladder was severely distended. It was aspirated of bile. There was a stone in the neck of the gallbladder. Dissection was carried out to the brendan hepatis indicating chronic cholecystitis and chronic scar tissue. Cystic duct and cystic artery were identifi ed, clipped and transected. Gallbladder then dissected away from the liver bed in the usual fashion. There was edema in the posterior wall. After appropriate irrigation and hemostasis, the gallbladde r was placed in an Endobag and removed through the umbilical site. Fascia at the umbilicus was close d using 0 Vicryl suture. The skin was reapproximated using subcuticular 4-0 Monocryl with Dermabond. The patient was transferred to recovery room in stable condition. Job ID: [id number]
--- NOTE | 2021-05-18 13:28 | Anesthesiology Progress Note ---
Date of Service May 18, 2021 Anesthesia Post Procedure Vital Signs Vital Signs: Temp Pulse Pulse Pulse Resp BP BP 05/18/21 13:20 88 16 178/88 H 05/18/21 13:10 97 H 14 157/112 H 05/18/21 13:00 36.5 C 85 17 188/83 H 05/18/21 12:50 74 14 174/87 H 05/18/21 12:40 82 14 162/90 H 05/18/21 12:30 76 12 171/91 H 05/18/21 12:20 85 18 156/77 H 05/18/21 12:13 36.1 C L 72 16 146/77 H 05/18/21 09:10 37.1 C 78 18 157/88 H 05/18/21 08:29 36.7 C 65 18 168/84 H 05/18/21 01:33 36.5 C 67 18 149/87 H 05/17/21 21:00 36.9 C 67 18 157/96 H 05/17/21 19:00 36.6 C 73 18 172/91 H 05/17/21 15:34 36.4 C L 102 H 18 148/91 H Pulse Ox 05/18/21 13:20 98 05/18/21 13:10 97 05/18/21 13:00 95 05/18/21 12:50 97 05/18/21 12:40 95 05/18/21 12:30 98 05/18/21 12:20 100 05/18/21 12:13 99 05/18/21 09:10 95 05/18/21 08:29 98 05/18/21 01:33 98 05/17/21 21:00 95 05/17/21 19:00 98 05/17/21 15:34 98 Pain Intensity Right Upper Abdomen: Pain Intensity: 6 Transfer of Care Handoff Completed per policy Notes Mental Status: alert / awake / arousable Patient Amnestic to Procedure: Yes Nausea / Vomiting: adequately controlled Pain: adequately controlled Airway Patency, RR, SpO2: stable & adequate BP & HR: stable & adequate Hydration State: stable & adequate Anesthetic Complications: no major complications apparent
[2021-05-18] MEDS ORDERED: oxyCODONE HCL IR 5 MG TAB (IMMEDIATE RELEASE) PO PRN (14:17)
[2021-05-18] MEDS ORDERED: MoRPHine SULFATE 2 MG/ML CARP IV PRN (14:17)
[2021-05-18] MEDS ORDERED: IBUPROFEN 600 MG TAB PO PRN (14:17)
[2021-05-18] MEDS ORDERED: ACETAMINOPHEN 325 MG TAB PO PRN (14:17)
[2021-05-18] MEDS ORDERED: Nursing to Pharmacy Communication SCH (15:15)
--- NOTE | 2021-05-18 15:26 | Hospitalist Progress Note ---
Date of Service May 18, 2021 Assessment & Plan (1) Cholelithiasis: Plan: post op doing well (2) Nausea: Plan: prn nausea control, can escalate if needed (3) Asthma: Plan: chronic, stable, no flare, continue home inhaler (4) HTN (hypertension): Plan: BP acceptable given situation, asymptomatic (5) DVT prophylaxis: Plan: per surgery Plan: medically stable - will sign off for now - available if any problems arise, however, so please do not hesistate to call Admission and Anticipated Discharge Date Admission Date: May 17, 2021 Subjective some nausea - notes that nursing is getting meds though. pain reasonable. no sob. notes asthma flares quite infrequently - breathing fine now Review of Systems Review of Systems: All systems reviewed & are unremarkable except as noted in HPI & below Physical Exam Physical Exam: gen aao pleasant nad heent nc at mmm breathing unlabored no accessory muscles good effort skin no rashes no pallor or icterus neuro no focal deficits Results & Data [facility] Vital Signs (Past 12 Hours) Vital Signs Temp Pulse Pulse Pulse Resp BP Pulse Ox 05/18/21 14:19 98.8 F 69 16 144/84 H 92 05/18/21 14:00 85 20 135/77 96 05/18/21 13:45 66 14 147/85 H 92 05/18/21 13:30 70 12 167/85 H 95 05/18/21 13:20 88 16 178/88 H 98 05/18/21 13:10 97 H 14 157/112 H 97 05/18/21 13:00 97.7 F 85 17 188/83 H 95 05/18/21 12:50 74 14 174/87 H 97 05/18/21 12:40 82 14 162/90 H 95 05/18/21 12:30 76 12 171/91 H 98 05/18/21 12:20 85 18 156/77 H 100 05/18/21 12:13 97.0 F L 72 16 146/77 H 99 05/18/21 09:10 98.8 F 78 18 157/88 H 95 05/18/21 08:29 98.1 F 65 18 168/84 H 98 PG Care Time/CCT Total # of Minutes Spent Total Time Spent with Patient: Total time spent is greater than 50% in coordination of care (as documented) at patient's floor/unit and/or counseling patient: Coding Level of Care Code 67998 Subseq Hosp Care Lvl 2 Diagnoses Cholelithiasis K80.20 Biliary obstruction: without biliary obstruction Cholecystitis presence: without cholecystitis Cholelithiasis location: gallbladder Nausea R11.0 Asthma J45.909 HTN (hypertension) I10 DVT prophylaxis Z29.9 (1) Cholelithiasis Biliary obstruction: without biliary obstruction Cholecystitis presence: without cholecystitis Cholelithiasis location: gallbladder Qualified Code(s): K80.20 - Calculus of gallbladder without cholecystitis without obstruction
[2021-05-18] MEDS ORDERED: PROMETHAZINE HCL 12.5 MG in SODIUM CHLORIDE 0.9% 50 ML IV PRN (18:00)
--- NOTE | 2021-05-19 02:11 | Billing Data ---
Date of Service May 19, 2021 Coding Level of Care Code 49430 Inpt Consult Level 3
[2021-05-19] MEDS: LACTATED RINGER'S 1,000 ML IV SCH (03:23)
[2021-05-19] MEDS: MoRPHine SULFATE 4 MG/ML 1 ML CARP\\VIAL IV PRN (03:24)
[2021-05-19] MEDS: PIPERACILLIN/TAZOBACTAM 3.375 GM in DEXTROSE 5% 100 ML IV SCH (07:46)
[2021-05-19] MEDS: FLUTICASONE/VILANTEROL 200/25MCG 14 PUFFS/INHALER INH SCH (07:47)
[2021-05-19] MEDS: SERTRALINE HCL 100 MG TABLET PO SCH (07:47)
[2021-05-19] MEDS: PANTOprazole 40 MG TAB PO SCH (07:47)
--- NOTE | 2021-05-19 11:54 | Surgery Progress Note ---
Date of Service May 19, 2021 Assessment & Plan (1) Cholelithiasis: Plan: POD 1 lap karthik doing well ok for discharge seen with Dr. Viveros as above. ok for d/c. instructions given. Admission and Anticipated Discharge Date Admission Date: May 17, 2021 Subjective tolerating diet, some soreness Physical Exam Gastrointestinal (Abdomen): Inspection/Auscultation: abdomen normal to inspection and + abdominal surgical incision (dry) Results & Data ([facility]) Vital Signs (Past 12 Hours) Vital Signs Temp Pulse Resp BP Pulse Ox 05/19/21 07:35 36.8 C 72 16 126/70 95 05/19/21 03:11 36.8 C 67 16 135/71 93 05/19/21 00:38 36.5 C 79 16 118/71 93 PG Care Time/CCT Total # of Minutes Spent Total Time Spent with Patient: Total time spent is greater than 50% in coordination of care (as documented) at patient's floor/unit and/or counseling patient: Coding Level of Care Code None Diagnoses Cholelithiasis K80.20 Biliary obstruction: without biliary obstruction Cholecystitis presence: without cholecystitis Cholelithiasis location: gallbladder (1) Cholelithiasis Biliary obstruction: without biliary obstruction Cholecystitis presence: without cholecystitis Cholelithiasis location: gallbladder Qualified Code(s): K80.20 - Calculus of gallbladder without cholecystitis without obstruction
--- NOTE | 2021-05-19 12:04 | Discharge Summary ---
Date of Service May 19, 2021 Admission HPI Per Admitting Provider Is a 60-year-old female with a known history of gallstones. The patient was seen in the emergency department on 05/11/2021 secondary to epigastric and right upper quadrant pain. She was seen in the emergency department where patient had a gallbladder ultrasound that identified cholelithiasis without cholecystitis. Patient not have a fever, elevated white blood cell count, or elevated LFTs and was therefore deemed stable for discharge home. The plan was for patient to follow-up with Dr. Allen last week however this appointment got canceled due to an emergency surgery on the part of the surgeon. She said that her appoint with Dr. Allen was rescheduled for tomorrow which is 05/18/2021. Patient represented to [facility] emergency department secondary to ongoing abdominal pain. The patient says that she has been having postprandial pain since yesterday. She says the pain is located in the epigastric area and right upper quadrant and radiates to her shoulder. She has had nausea without vomiting. She notes that the pain is worse after eating and is improved with pain medicines administered by the emergency department. She has not had any fevers, shakes, chills. She notes that her most recent oral intake was at approximately 2:00 PM today. She has had no prior abdominal surgeries Today in the emergency department patient had a repeat gallbladder ultrasound that showed cholelithiasis without evidence of cholecystitis. Labs include a CBC her white blood cell count, hemoglobin, hematocrit, and platelet count are all normal. Chemistry profile showed sodium, potassium, BUN, and creatinine were all normal. There is no elevation of patient's bilirubin or transaminases. There is a slight elevation of her alkaline phosphatase at 107. Her lipase was normal. Urinalysis did show 1+ leukocyte Estrace and 10-30 white blood cells per high-power field. The specimen was negative for bacteria. A Covid test has been ordered and is pending. At the time of my interview the patient was resting comfortably in bed and she was in no distress. Principal Diagnosis Cholelithiasis, acute and chronic cholecystitis Discharge Exam Constitutional WD/WN, vitals as above Gastrointestinal (Abdomen) Inspection/Auscultation: + abdominal surgical incision (clean, dry) Percussion/Palpation: abdomen soft Discharge Data Allergies Allergy/AdvReac Type Severity Reaction Status Date / Time No Known Drug Allergies Allergy Unknown Verified 05/17/21 17:08 Consultations 05/17/21 19:56 ED Decision to Admit Stat 05/17/21 20:39 Consult Hospitalist Stat Procedures Performed Operation Date: 05/18/21 10:25 Actual Procedures p Laparoscopic Cholecystectomy(Not Applicable) - Kenny Long MD, FACS Ordered Studies 05/17/21 16:38 US gallbladder Stat Hospital Course (1) Cholelithiasis: 60 y/o female presented to the ER for the second time in a week with persistent abdominal pain. Ultrasound showed cholelithiasis. She was admitted to the surgical service overnight and taken to the operating room in the morning for laparoscopic cholecystectomy. She did have introp findings of cholecystitis. She was returned to the surgical floor and continued on IV antibiotics. By the next morning she was tolerating diet and oral analgesics. She was stable for discharge home. Total Time Total Time Spent Total Time Spent (In Minutes): 15 Discharge Plan Discharge Items Patient Disposition: Home - Self-Care Reason For Visit: [facility] Discharge Diagnosis: laparoscopic cholecystectomy Activity: Per Instructions section Activity Comment: light activity for 4 weeks Lifting: No more than 10 pounds Bathing Comment: may shower starting 05/19/21; no soaking in tubs/pools Sexual Activity: When tolerated Exercise/Sports: Wait until after follow-up appointment Exercise Comment: light activity for 4 weeks Driving/Machine Use: no driving while taking narcotics for pain Non-emergency contact: Surgeon Call non-emergency contact if: you have any medication questions, your symptoms worsen, your pain is not controlled, your pain is concerning for you, you have a fever, your temperature is above 101.5, your wound has increased redness, your wound has increased drainage and your wound pain has increased Follow-up/Referrals: Kenny Long MD, FACS [Physician] - 06/01/21 1:00 pm Vibha Duff MD [Primary Care Provider] - Diet: Regular Addtl Attending Provider Instructions: SPECIAL CARE INSTRUCTIONS: * Cover incisions and change daily for comfort/drainage. * May use ibuprofen for pain as tolerated. * Expect some swelling and bruising. Call your doctor if: * Temperature above 101 degrees * Pain not relieved by pain medicine ordered * There is increased drainage or redness from any incision * You have any unanswered questions or concerns [phone]. FOLLOW UP VISIT: If not already scheduled, please call the office for a follow-up visit. OFFICE PHONE NUMBER: Dr. Long Office Pending Studies at Discharge: Yes Studies:: surgical pathology Stand-Alone Forms: [facility], Smoking Cessation Medications and DC Order Prescriptions: New hydrocodone-acetaminophen 5-325 mg tablet 1 - 2 tab PO .q4h- q6h PRN (Reason: pain, for initial therapy, max 6 tabs per day ) Qty: 15 RF: 0 Continued Breo Ellipta 200-25 mcg/dose blister with device 1 inh INH QAM Qty: 60 RF: 5 albuterol sulfate [Ventolin HFA] 90 mcg/actuation HFA aerosol inhaler 2 puff INH Q4H PRN (Reason: shortness of breath or wheezing) Qty: 18 RF: 3 cholecalciferol (vitamin D3) 1,250 mcg (50,000 unit) capsule 50,000 unit PO .COMPLEX 90 Days Qty: 24 RF: 0 amlodipine 2.5 mg tablet 2.5 mg PO PM RF: 0 pantoprazole 40 mg tablet,delayed release (DR/EC) 40 mg PO DAILY Qty: 90 RF: 1 sertraline 100 mg tablet 200 mg PO QAM RF: 0 clonazepam 0.5 mg Tablet 0.5 mg PO HS PRN (Reason: anxiety/sleep) RF: 0 albuterol sulfate 2.5 mg /3 mL (0.083 %) solution for nebulization 2.5 mg INH Q4 PRN (Reason: shortness of breath or wheezing) RF: 0 cefdinir 300 mg capsule 300 mg PO BID 7 Days Qty: 14 RF: 0 Discharge Orders: Discharge Order (Routine); Ordered 05/19/21 Ordered By: Sriram Richard Admission Data Admit Date/Time: 05/17/21 20:38 Attending Provider: Kenny Long Admit Provider: Kenny Long Primary Care Provider: Vibha Duff Other Providers: Thomas Sherman ; Kenny Long ; Fish Maciel Coding Level of Care Code D/C DAY MANAGEMENT <30 MINS Diagnoses Cholelithiasis K80.20 Biliary obstruction: without biliary obstruction Cholecystitis presence: without cholecystitis Cholelithiasis location: gallbladder
--- NOTE | 2021-05-19 12:27 | Electrocardiogram Report ---
Test Reason : Blood Pressure : / mmHG Vent. Rate : 076 BPM Atrial Rate : 076 BPM P-R Int : 172 ms QRS Dur : 074 ms QT Int : 370 ms P-R-T Axes : 059 020 046 degrees QTc Int : 416 ms Normal sinus rhythm Normal ECG When compared with ECG of 11-MAY-2021 17:45, No significant change was found Confirmed by Reynaldo Hess ([id number]) on 05/19/2021 12:26:58 PM Referred By: REFERRED SELF Confirmed By:Reynaldo Hess
== END 2021-05-19 14:26 | disposition home or self-care (01) ==
LOC: ED 15:30 → 3N 15:30